=== PATIENT | male | born 1945 | race Caucasian/White ===

== ENCOUNTER 2017-09-06 14:02 | Inpatient (IN) | payer OTHER, MEDICARE ==
[~2017-09-06] VITALS: Ht 170.2 cm; Wt 115.0 kg
[~2017-09-06 14:02] MED LIST: ACET-812 PO; ALPR0.5T10 PO; ATOR20TA66 PO; BUPR150T8 PO; BUPR1FIL3 SL; DULO-31 PO; LACT1CAP65 PO; LEVO112T25 PO; LOSA100T28 PO; METO25TA6 PO; PANT-47 PO; TAMS0.4C32 PO; TRAZ-146 PO
[2017-09-06] MEDS ORDERED: nitroGLYCERIN 0.4mg/hour patch TD ONE (14:10)
[2017-09-06] MEDS ORDERED: aspirin 81mg tab.chew PO ONE (14:10)
[2017-09-06] MEDS ORDERED: potassium 10mEq/100ml NS w/LIDOcaine (10mg/bag) IV ONE (14:10)
[2017-09-06 14:29] LABS: BASOPHILS % (AUTO) 0.3 % (0-1); EOSINOPHILS # (AUTO) 0.7 X10'3 (0-0.9); EOSINOPHILS % (AUTO) 9.4 % (0-6); HEMATOCRIT 35.5 % (42.0-52.0); HEMOGLOBIN 12.1 g/dl (14.0-17.9); LYMPHOCYTES # (AUTO) 2.1 X10'3 (1.1-4.8); LYMPHOCYTES % (AUTO) 28.7 % (21-51); MEAN CORPUSCULAR HEMOGLOBIN 31.9 PG (27.0-31.0); MEAN CORPUSCULAR HGB CONC 34.2 % (33.0-36.5); MEAN CORPUSCULAR VOLUME 93.2 FL (78-98); MEAN PLATELET VOLUME 7.5 FL (7.4-10.4); MONOCYTES # (AUTO) 0.7 X10'3 (0-0.9); MONOCYTES % (AUTO) 9.9 % (2-12); NEUTROPHILS # (AUTO) 3.8 X10'3 (1.8-7.7); NEUTROPHILS % (AUTO) 51.7 % (42-75); PLATELET COUNT 243 X10'3 (140-440); RED BLOOD COUNT 3.81 X10'6 (4.70-6.10); RED CELL DISTRIBUTION WIDTH 13.9 % (11.5-14.5); WHITE BLOOD COUNT 7.3 X10'3 (4.5-11.0)
[2017-09-06 14:47] LABS: PROTHROMBIN TIME 9.5 SECONDS (9.0-12.0)
[2017-09-06 14:48] LABS: PARTIAL THROMBOPLASTIN TIME 26 SECONDS (22-32)
[2017-09-06 14:53] LABS: CLARITY,URINE SLIGHTLY CLOUDY (Clear); COLOR,URINE YELLOW (Yellow); GLUCOSE, URINE NEGATIVE (Neg); KETONES,URINE NEGATIVE (Neg); LEUKOCYTE ESTERASE ,URINE MODERATE (Neg); NITRITES, URINE NEGATIVE (Neg); OCCULT BLOOD,URINE NEGATIVE (Neg); PROTEIN,URINE NEGATIVE (Neg); UROBILINOGEN,URINE 0.2 E.U/dL (0.2-1.0)
[2017-09-06 14:54] LABS: ALANINE AMINOTRANSFERASE 22 U/L (12-78); ALBUMIN 3.2 G/DL (3.4-5.0); ALBUMIN/GLOBULIN RATIO 0.9 (1.1-1.5); ALKALINE PHOSPHATASE 57 IU/L (46-116); ANION GAP 6 (8-16); ASPARTATE AMINO TRANSFERASE 15 U/L (10-37); BILIRUBIN,TOTAL 0.2 MG/DL (0.1-1.0); BLOOD UREA NITROGEN 23 MG/DL (7-18); BUN/CREATININE RATIO 16.9 (5.4-32.0); CALCIUM 8.4 MG/DL (8.5-10.1); CHLORIDE 105 MMOL/L (99-107); CREATINE KINASE 33 U/L (39-308); CREATININE 1.36 MG/DL (0.60-1.10); GLUCOSE 114 MG/DL (70-104); POTASSIUM 4.7 MMOL/L (3.5-5.1); SODIUM 140 MMOL/L (135-145); TOTAL CARBON DIOXIDE 29.3 MMOL/L (24-32); TOTAL PROTEIN 6.8 G/DL (6.4-8.2); TROPONIN I < 0.04 NG/ML (0.0-0.05); eGFR 52 ML/MIN
[2017-09-06 15:03] LABS: UA COLLECTION TYPE URINAL
[2017-09-06 15:04] LABS: WBC,URINE 30-50 /HPF (0-4)
[2017-09-06 15:05] LABS: BACTERIA,URINE FEW /HPF (Neg); MUCUS STRANDS FEW /LPF (Neg); RBC,URINE 0-2 /HPF (0-2); SQUAMOUS EPITHELIAL CELL,UR FEW /LPF (FEW); WBC CLUMPS,URINE FEW /HPF (NEGATIVE); YEAST FEW /HPF (NEGATIVE)
[2017-09-06] MEDS ORDERED: ondansetron/PF 4mg/2ml inj IV PRN (16:30)
[2017-09-06] MEDS ORDERED: regadenoson 0.4mg/5ml syringe IV ONE (16:30)
[2017-09-06] MEDS ORDERED: acetaminophen 325mg tablet PO PRN (16:30)
[2017-09-06] MEDS ORDERED: HYDROmorphone inj. 0.5 MG/0.5 ML DISP.SYRIN IV PRN ×2 (16:30)
[2017-09-06] MEDS ORDERED: magnesium Cl slow-release 64mg tablet PO PRN (16:30)
[2017-09-06] MEDS ORDERED: potassium Cl 20 mEq SR tablet PO PRN ×2 (16:30)
[2017-09-06] MEDS ORDERED: mag hydrox/Alum hydrox/simeth 30ml oral suspension PO PRN (16:30)
[2017-09-06] MEDS ORDERED: magnesium 4gm in 100ml NS 100 ML IV PRN (16:30)
[2017-09-06] MEDS ORDERED: magnesium hydroxide 30ml (MOM) UD suspension PO PRN (16:30)
[2017-09-06] MEDS ORDERED: aminophylline 250mg/10ml inj. IV PRN (16:30)
[2017-09-06] MEDS ORDERED: magnesium 2GM in 50ml NS 50 ML IV PRN (16:30)
[2017-09-06] MEDS ORDERED: metoprolol tartrate 1mg/ml inj IV PRN (16:30)
[2017-09-06] MEDS ORDERED: potassium Cl 40MEQ/NS 500ml 500 ML IV PRN ×2 (16:30)
[2017-09-06] MEDS ORDERED: nitroGLYCERIN 0.4mg SUBLingual tab SL PRN (16:30)
[2017-09-06] MEDS: normal saline 1000ml 1,000 ML IV SCH (16:47)
[2017-09-06] MEDS ORDERED: ALPR0.257 PO (16:48)
[2017-09-06] MEDS ORDERED: BUPR1TAB52 SL (16:48)
[2017-09-06] MEDS ORDERED: regadenoson 0.4mg/5ml syringe IV PRN (17:40)
[2017-09-06] MEDS: pantoprazole 40mg Tablet.DR PO SCH (19:55)
[2017-09-06] MEDS: lactobacillus rhamnosus 10,000 MMU CELLS/CAPSULE PO SCH (19:55)
[2017-09-06] MEDS: acetaminophen 325mg tablet PO SCH (19:55)
[2017-09-06] MEDS: heparin, porcine 5000 units/ml vial SQ SCH (19:56)
[2017-09-06] MEDS ORDERED: traZODone 50mg tablet PO SCH (21:00)
[2017-09-06] MEDS ORDERED: temazepam 15mg capsule PO PRN (21:00)
[2017-09-06] MEDS: ALPRAZolam 0.25mg tablet PO PRN (21:32)
[2017-09-07] VITALS (9 sets, daily range): BP systolic 93–109; BP diastolic 48–64
[2017-09-07 02:27] LABS: BASOPHILS # (AUTO) 0.1 X10'3 (0-0.2); BASOPHILS % (AUTO) 0.7 % (0-1); EOSINOPHILS # (AUTO) 0.8 X10'3 (0-0.9); EOSINOPHILS % (AUTO) 7.6 % (0-6); HEMATOCRIT 32.6 % (42.0-52.0); HEMOGLOBIN 11.3 g/dl (14.0-17.9); LYMPHOCYTES # (AUTO) 3.2 X10'3 (1.1-4.8); LYMPHOCYTES % (AUTO) 31.6 % (21-51); MEAN CORPUSCULAR HEMOGLOBIN 32.1 PG (27.0-31.0); MEAN CORPUSCULAR HGB CONC 34.7 % (33.0-36.5); MEAN CORPUSCULAR VOLUME 92.5 FL (78-98); MEAN PLATELET VOLUME 7.9 FL (7.4-10.4); MONOCYTES % (AUTO) 9.8 % (2-12); NEUTROPHILS % (AUTO) 50.3 % (42-75); PLATELET COUNT 221 X10'3 (140-440); RED BLOOD COUNT 3.52 X10'6 (4.70-6.10); RED CELL DISTRIBUTION WIDTH 12.7 % (11.5-14.5); WHITE BLOOD COUNT 10.1 X10'3 (4.5-11.0)
[2017-09-07 02:48] LABS: ALANINE AMINOTRANSFERASE 21 U/L (12-78); ALBUMIN 2.9 G/DL (3.4-5.0); ALBUMIN/GLOBULIN RATIO 0.9 (1.1-1.5); ALKALINE PHOSPHATASE 47 IU/L (46-116); ANION GAP 5 (8-16); ASPARTATE AMINO TRANSFERASE 13 U/L (10-37); BILIRUBIN,TOTAL 0.2 MG/DL (0.1-1.0); BLOOD UREA NITROGEN 23 MG/DL (7-18); BUN/CREATININE RATIO 16.3 (5.4-32.0); CALCIUM 8.1 MG/DL (8.5-10.1); CHLORIDE 105 MMOL/L (99-107); CHOL/HDL RATIO 3.5 (0.00-4.99); CHOLESTEROL 146 MG/DL (0-200); CREATININE 1.41 MG/DL (0.60-1.10); GLUCOSE 100 MG/DL (70-104); HDL CHOLESTEROL 42 MG/DL (35-60); LDL CHOLESTEROL 71 MG/DL (50-100); MAGNESIUM 1.8 MG/DL (1.5-2.4); POTASSIUM 4.1 MMOL/L (3.5-5.1); SODIUM 138 MMOL/L (135-145); TOTAL CARBON DIOXIDE 28.4 MMOL/L (24-32); TOTAL PROTEIN 6.2 G/DL (6.4-8.2); TRIGLYCERIDES 240 MG/DL (20-135); eGFR 49 ML/MIN
[2017-09-07] MEDS ORDERED: metoprolol tartrate 25mg tablet PO SCH (08:00)
[2017-09-07] MEDS ORDERED: K and/or MAG REPLACEMENT MC SCH (08:00)
[2017-09-07] MEDS ORDERED: BUPRENORPHINE NALOXONE PO SCH (08:00)
[2017-09-07] MEDS ORDERED: duloxetine 30mg CAPSULE.DR PO SCH (08:00)
[2017-09-07] MEDS ORDERED: buprenorphine/naloxone 8mg/2mg SL tablet SL SCH (08:00)
[2017-09-07] MEDS ORDERED: atorvastatin 20mg tablet PO SCH (08:00)
[2017-09-07] MEDS ORDERED: levoTHYROXINE 112mcg tablet PO SCH (08:00)
[2017-09-07] MEDS ORDERED: tamsulosin 0.4mg capsule PO SCH (08:00)
[2017-09-07] MEDS ORDERED: buPROPion SR 150mg tablet PO SCH (08:00)
[2017-09-07] MEDS ORDERED: aminophylline inj. 0 ML IV ONE (08:33)
[2017-09-07] MEDS ORDERED: regadenoson 0.4mg/5ml syringe IV ONE (08:33)
[2017-09-07] MEDS ORDERED: pneumococcal 23-VAL P-sac vacc 25 mcg/0.5ml vial IMVAC ONE (10:00)
[2017-09-07] MEDS: ALPRAZolam 0.25mg tablet PO PRN (10:31)
[2017-09-07] MEDS: lactobacillus rhamnosus 10,000 MMU CELLS/CAPSULE PO SCH (10:43)
[2017-09-07] MEDS: heparin, porcine 5000 units/ml vial SQ SCH (10:44)
[2017-09-07] MEDS: acetaminophen 325mg tablet PO SCH (10:45)
[2017-09-07] MEDS: pantoprazole 40mg Tablet.DR PO SCH (10:46)
[2017-09-07] MEDS: normal saline 1000ml 1,000 ML IV SCH (11:09)
[2017-09-07] MEDS ORDERED: LOSA50TA37 PO (11:32)
== END 2017-09-07 12:20 | disposition home or self-care (01) | DRG 313 ==
LOC: ER 14:03 → ED HOLD 15:49 → PCU 3S 09-07 07:56
PROVIDERS: ADMIT Internal Medicine; ATTEND Internal Medicine
PROC: 4A02XM4 Measurement of Cardiac Total Activity, External Approach (ICD-10-PCS; principal; 2017-09-07)
PROC: 3E073KZ Introduction of Other Diagnostic Substance into Coronary Artery, Percutaneous Approach (ICD-10-PCS; 2017-09-07)
DX: R07.89 Other chest pain (principal); I25.10 Atherosclerotic heart disease of native coronary artery without angina pectoris; N18.3 Chronic kidney disease, stage 3 (moderate); E03.9 Hypothyroidism, unspecified; E78.00 Pure hypercholesterolemia, unspecified; E78.5 Hyperlipidemia, unspecified; E66.9 Obesity, unspecified; F32.9 Major depressive disorder, single episode, unspecified; G47.30 Sleep apnea, unspecified; I12.9 Hypertensive chronic kidney disease with stage 1 through stage 4 chronic kidney disease, or unspecified chronic kidney disease; G89.29 Other chronic pain; M54.5 Low back pain; N40.0 Benign prostatic hyperplasia without lower urinary tract symptoms; Z95.1 Presence of aortocoronary bypass graft; Z88.6 Allergy status to analgesic agent; Z79.899 Other long term (current) drug therapy; Z98.49 Cataract extraction status, unspecified eye; Z87.442 Personal history of urinary calculi; Z68.39 Body mass index [BMI] 39.0-39.9, adult
CPT/HCPCS: 36415; 71045; 78452; 80053; 80061; 80162; 81001; 82550; 82553; 83735; 83874; 83880; 84443; 84484; 85025; 85610; 85730; 87070; 87077; 87088; 93005; 93017; 93306; 94660; A9500; J0280; J1644; J3480; J7030

== ENCOUNTER 2017-09-11 01:31 | Emergency (ER) | payer OTHER, MEDICARE ==
[~2017-09-11] VITALS: Ht 170.2 cm; Wt 120.0 kg
[~2017-09-11 01:31] MED LIST changes: +ALPR0.257 PO; -ALPR0.5T10 PO; -BUPR1FIL3 SL; +BUPR1TAB52 SL; -LOSA100T28 PO; +LOSA50TA37 PO
[2017-09-11] MEDS ORDERED: ketorolac tromethamine 15mg/ml inj. IV ONE (02:00)
[2017-09-11 02:24] LABS: ALANINE AMINOTRANSFERASE 27 U/L (12-78); ALBUMIN 3.6 G/DL (3.4-5.0); ALBUMIN/GLOBULIN RATIO 0.8 (1.1-1.5); ALKALINE PHOSPHATASE 64 IU/L (46-116); ANION GAP 11 (8-16); ASPARTATE AMINO TRANSFERASE 20 U/L (10-37); BASOPHILS % (AUTO) 0.3 % (0-1); BILIRUBIN,TOTAL 0.3 MG/DL (0.1-1.0); BLOOD UREA NITROGEN 25 MG/DL (7-18); BUN/CREATININE RATIO 13.1 (5.4-32.0); CALCIUM 9.5 MG/DL (8.5-10.1); CHLORIDE 103 MMOL/L (99-107); CREATININE 1.91 MG/DL (0.60-1.10); EOSINOPHILS # (AUTO) 0.7 X10'3 (0-0.9); EOSINOPHILS % (AUTO) 4.3 % (0-6); GLUCOSE 117 MG/DL (70-104); HEMATOCRIT 40.2 % (42.0-52.0); HEMOGLOBIN 13.6 g/dl (14.0-17.9); LIPASE 70 U/L (73-393); LYMPHOCYTES # (AUTO) 2.5 X10'3 (1.1-4.8); LYMPHOCYTES % (AUTO) 16.4 % (21-51); MAGNESIUM 1.9 MG/DL (1.5-2.4); MEAN CORPUSCULAR HEMOGLOBIN 31.1 PG (27.0-31.0); MEAN CORPUSCULAR HGB CONC 33.8 % (33.0-36.5); MEAN CORPUSCULAR VOLUME 92.1 FL (78-98); MEAN PLATELET VOLUME 8.9 FL (7.4-10.4); MONOCYTES # (AUTO) 1.3 X10'3 (0-0.9); MONOCYTES % (AUTO) 8.5 % (2-12); NEUTROPHILS # (AUTO) 10.8 X10'3 (1.8-7.7); NEUTROPHILS % (AUTO) 70.5 % (42-75); PLATELET COUNT 275 X10'3 (140-440); POTASSIUM 3.8 MMOL/L (3.5-5.1); RED BLOOD COUNT 4.36 X10'6 (4.70-6.10); RED CELL DISTRIBUTION WIDTH 12.5 % (11.5-14.5); SODIUM 142 MMOL/L (135-145); TOTAL CARBON DIOXIDE 28.3 MMOL/L (24-32); TOTAL PROTEIN 7.9 G/DL (6.4-8.2); WHITE BLOOD COUNT 15.3 X10'3 (4.5-11.0); eGFR 35 ML/MIN
[2017-09-11 03:17] VITALS: BP 137/71
[2017-09-11 03:20] LABS: COLOR,URINE YELLOW (Yellow); GLUCOSE, URINE NEGATIVE (Neg); KETONES,URINE NEGATIVE (Neg); LEUKOCYTE ESTERASE ,URINE SMALL (Neg); NITRITES, URINE NEGATIVE (Neg); OCCULT BLOOD,URINE LARGE (Neg); PROTEIN,URINE NEGATIVE (Neg); UROBILINOGEN,URINE 0.2 E.U/dL (0.2-1.0)
[2017-09-11] MEDS ORDERED: ondansetron/PF 4mg/2ml inj IV ONE (03:25)
[2017-09-11 03:48] LABS: CLARITY,URINE SLIGHTLY CLOUDY (Clear); UA COLLECTION TYPE CLN CATCH MIDSTREAM
[2017-09-11 03:50] LABS: BACTERIA,URINE NONE SEEN /HPF (Neg); MUCUS STRANDS FEW /LPF (Neg); SQUAMOUS EPITHELIAL CELL,UR FEW /LPF (FEW); WBC CLUMPS,URINE FEW /HPF (NEGATIVE); WBC,URINE 30-50 /HPF (0-4)
[2017-09-11 03:51] LABS: YEAST FEW /HPF (NEGATIVE)
[2017-09-11] MEDS ORDERED: levoFLOXACIN 500mg tablet PO ONE (04:00)
[2017-09-11] MEDS ORDERED: LEVO500T2 PO (04:02)
== END 2017-09-11 04:13 | disposition home or self-care (01) ==
LOC: ER 01:32
DX: N39.0 Urinary tract infection, site not specified (principal); N20.0 Calculus of kidney; I25.10 Atherosclerotic heart disease of native coronary artery without angina pectoris; E78.00 Pure hypercholesterolemia, unspecified; I10 Essential (primary) hypertension; E03.9 Hypothyroidism, unspecified; G89.29 Other chronic pain; Z95.1 Presence of aortocoronary bypass graft; Z88.5 Allergy status to narcotic agent; Z79.899 Other long term (current) drug therapy
CPT/HCPCS: 36415; 74176; 80053; 81001; 83690; 83735; 85025; 87088; 96374; 96375; 99285; J1885; J2405

== ENCOUNTER 2018-01-06 13:39 | Emergency (ER) | payer MEDICARE, OTHER ==
[~2018-01-06] VITALS: Ht 172.7 cm; Wt 104.8 kg
[2018-01-06 14:14] LABS: BASOPHILS % (AUTO) 0.4 % (0-1); EOSINOPHILS # (AUTO) 0.2 X10'3 (0-0.9); EOSINOPHILS % (AUTO) 2.2 % (0-6); HEMATOCRIT 42.4 % (42.0-52.0); HEMOGLOBIN 14.5 g/dl (14.0-17.9); LYMPHOCYTES % (AUTO) 20.8 % (21-51); MEAN CORPUSCULAR HEMOGLOBIN 32.1 PG (27.0-31.0); MEAN CORPUSCULAR HGB CONC 34.2 % (33.0-36.5); MEAN CORPUSCULAR VOLUME 93.9 FL (78-98); MEAN PLATELET VOLUME 7.6 FL (7.4-10.4); MONOCYTES # (AUTO) 0.8 X10'3 (0-0.9); MONOCYTES % (AUTO) 7.9 % (2-12); NEUTROPHILS # (AUTO) 6.7 X10'3 (1.8-7.7); NEUTROPHILS % (AUTO) 68.7 % (42-75); PLATELET COUNT 278 X10'3 (140-440); RED BLOOD COUNT 4.51 X10'6 (4.70-6.10); RED CELL DISTRIBUTION WIDTH 13.8 % (11.5-14.5); WHITE BLOOD COUNT 9.7 X10'3 (4.5-11.0)
[2018-01-06] MEDS ORDERED: ondansetron/PF 4mg/2ml inj IV ONE (14:15)
[2018-01-06] MEDS ORDERED: normal saline 1000ML IV soln IVB ONE (14:15)
[2018-01-06 14:22] LABS: PROTHROMBIN TIME 10.2 SECONDS (9.0-12.0)
[2018-01-06 14:28] LABS: ALANINE AMINOTRANSFERASE 19 U/L (12-78); ALBUMIN 3.8 G/DL (3.4-5.0); ALBUMIN/GLOBULIN RATIO 0.9 (1.1-1.5); ALKALINE PHOSPHATASE 56 IU/L (46-116); ANION GAP 11 (8-16); ASPARTATE AMINO TRANSFERASE 17 U/L (10-37); BILIRUBIN,TOTAL 0.5 MG/DL (0.1-1.0); BLOOD UREA NITROGEN 12 MG/DL (7-18); BUN/CREATININE RATIO 9.2 (5.4-32.0); CHLORIDE 102 MMOL/L (99-107); CREATININE 1.31 MG/DL (0.60-1.10); GLUCOSE 130 MG/DL (70-104); LIPASE 74 U/L (73-393); POTASSIUM 4.1 MMOL/L (3.5-5.1); SODIUM 140 MMOL/L (135-145); TOTAL CARBON DIOXIDE 26.9 MMOL/L (24-32); TOTAL PROTEIN 8.2 G/DL (6.4-8.2); eGFR 54 ML/MIN
[2018-01-06] MEDS ORDERED: lactulose 20gm/30ml cup PO ONE (14:45)
[2018-01-06] MEDS ORDERED: methylnaltrexone br 12mg/0.6ml inj***SubQ only SQ ONE (14:45)
[2018-01-06] MEDS ORDERED: ONDA4TAB9 PO (14:53)
[2018-01-06 15:08] VITALS: BP 115/77
== END 2018-01-06 15:13 | disposition home or self-care (01) ==
LOC: ER 13:39
DX: K59.03 Drug induced constipation (principal); T40.605A Adverse effect of unspecified narcotics, initial encounter; M54.2 Cervicalgia; M54.9 Dorsalgia, unspecified; I25.10 Atherosclerotic heart disease of native coronary artery without angina pectoris; E78.00 Pure hypercholesterolemia, unspecified; I10 Essential (primary) hypertension; I25.2 Old myocardial infarction; E03.9 Hypothyroidism, unspecified; Z95.1 Presence of aortocoronary bypass graft; Z98.890 Other specified postprocedural states; Z88.5 Allergy status to narcotic agent; Z79.899 Other long term (current) drug therapy; Y92.89 Other specified places as the place of occurrence of the external cause
CPT/HCPCS: 36415; 74018; 80053; 83690; 85025; 85610; 96372; 99285; J2212

== ENCOUNTER 2018-08-12 10:23 | Emergency (ER) | payer MEDICARE, OTHER ==
[~2018-08-12] VITALS: Ht 172.7 cm; Wt 111.4 kg
[~2018-08-12 10:23] MED LIST changes: -LOSA50TA37 PO; +LOSA50TA64 PO; -TRAZ-146 PO; +TRAZ-219 PO
[2018-08-12 11:02] LABS: BASOPHILS % (AUTO) 0.5 % (0-1); EOSINOPHILS # (AUTO) 0.4 X10'3 (0-0.9); EOSINOPHILS % (AUTO) 5.8 % (0-6); HEMATOCRIT 37.7 % (42.0-52.0); HEMOGLOBIN 12.7 g/dl (14.0-17.9); LYMPHOCYTES # (AUTO) 2.1 X10'3 (1.1-4.8); LYMPHOCYTES % (AUTO) 29.3 % (21-51); MEAN CORPUSCULAR HEMOGLOBIN 32.3 PG (27.0-31.0); MEAN CORPUSCULAR HGB CONC 33.8 g/dL (33.0-36.5); MEAN CORPUSCULAR VOLUME 95.7 FL (78-98); MEAN PLATELET VOLUME 8.1 FL (7.4-10.4); MONOCYTES # (AUTO) 0.9 X10'3 (0-0.9); NEUTROPHILS # (AUTO) 3.9 X10'3 (1.8-7.7); NEUTROPHILS % (AUTO) 52.4 % (42-75); PLATELET COUNT 260 X10'3 (140-440); RED BLOOD COUNT 3.94 X10'6 (4.70-6.10); RED CELL DISTRIBUTION WIDTH 13.9 % (11.5-14.5); WHITE BLOOD COUNT 7.3 X10'3 (4.5-11.0)
[2018-08-12 11:11] LABS: ALANINE AMINOTRANSFERASE 18 U/L (12-78); ALBUMIN 3.5 G/DL (3.4-5.0); ALBUMIN/GLOBULIN RATIO 0.9 (1.1-1.5); ALKALINE PHOSPHATASE 88 IU/L (46-116); ANION GAP 8 (8-16); ASPARTATE AMINO TRANSFERASE 19 U/L (10-37); BILIRUBIN,TOTAL 0.2 MG/DL (0.1-1.0); BLOOD UREA NITROGEN 28 MG/DL (7-18); BUN/CREATININE RATIO 20.4 (5.4-32.0); CALCIUM 9.1 MG/DL (8.5-10.1); CHLORIDE 103 MMOL/L (99-107); CREATININE 1.37 MG/DL (0.60-1.10); GLUCOSE 80 MG/DL (70-104); POTASSIUM 4.1 MMOL/L (3.5-5.1); SODIUM 140 MMOL/L (135-145); TOTAL CARBON DIOXIDE 28.6 MMOL/L (24-32); TOTAL PROTEIN 7.4 G/DL (6.4-8.2); eGFR 51 ML/MIN
[2018-08-12] MEDS ORDERED: METO-395 PO (12:53)
[2018-08-12] MEDS ORDERED: FISH12002 PO (12:53)
[2018-08-12] MEDS ORDERED: ISOS30TA6 PO (12:53)
[2018-08-12] MEDS ORDERED: MULT-933 PO (12:53)
[2018-08-12] MEDS ORDERED: IBUP-1986 PO (12:53)
[2018-08-12] MEDS ORDERED: CHOL400T14 PO (12:53)
[2018-08-12] MEDS ORDERED: NITR0.4T SL (12:53)
[2018-08-12 13:04] VITALS: BP 115/44
== END 2018-08-12 13:06 | disposition home or self-care (01) ==
LOC: ER 10:23
DX: R07.9 Chest pain, unspecified (principal); M79.662 Pain in left lower leg; M79.661 Pain in right lower leg; I25.10 Atherosclerotic heart disease of native coronary artery without angina pectoris; E78.00 Pure hypercholesterolemia, unspecified; I10 Essential (primary) hypertension; I25.2 Old myocardial infarction; G47.30 Sleep apnea, unspecified; G89.29 Other chronic pain; E03.9 Hypothyroidism, unspecified; F32.9 Major depressive disorder, single episode, unspecified; Z95.1 Presence of aortocoronary bypass graft; Z88.5 Allergy status to narcotic agent; Z87.442 Personal history of urinary calculi; Z79.899 Other long term (current) drug therapy
CPT/HCPCS: 36415; 71045; 80053; 83880; 84484; 85025; 93005; 99284

== ENCOUNTER 2018-12-31 11:32 | Emergency (ER) | payer MEDICARE, OTHER ==
[~2018-12-31] VITALS: Ht 172.7 cm; Wt 115.6 kg
[~2018-12-31 11:32] MED LIST changes: +CHOL400T14 PO; +FISH12002 PO; +IBUP-1986 PO; +ISOS30TA6 PO; -LOSA50TA64 PO; +METO-395 PO; -METO25TA6 PO; +MULT-933 PO; +NITR0.4T SL; +SULF1TAB49 PO
[2018-12-31 12:03] LABS: BASOPHILS # (AUTO) 0.1 X10'3 (0-0.2); BASOPHILS % (AUTO) 0.7 % (0-1); EOSINOPHILS # (AUTO) 0.3 X10'3 (0-0.9); EOSINOPHILS % (AUTO) 4.5 % (0-6); HEMOGLOBIN 13.3 g/dl (14.0-17.9); LYMPHOCYTES # (AUTO) 1.9 X10'3 (1.1-4.8); LYMPHOCYTES % (AUTO) 24.9 % (21-51); MEAN CORPUSCULAR HEMOGLOBIN 31.9 PG (27.0-31.0); MEAN PLATELET VOLUME 8.2 FL (7.4-10.4); MONOCYTES # (AUTO) 0.9 X10'3 (0-0.9); MONOCYTES % (AUTO) 12.1 % (2-12); NEUTROPHILS # (AUTO) 4.5 X10'3 (1.8-7.7); NEUTROPHILS % (AUTO) 57.8 % (42-75); PLATELET COUNT 230 X10'3 (140-440); RED BLOOD COUNT 4.15 X10'6 (4.70-6.10); RED CELL DISTRIBUTION WIDTH 13.9 % (11.5-14.5); WHITE BLOOD COUNT 7.7 X10'3 (4.5-11.0)
[2018-12-31 12:16] LABS: ANION GAP 9 (8-16); BLOOD UREA NITROGEN 22 MG/DL (7-18); BUN/CREATININE RATIO 15.4 (5.4-32.0); CHLORIDE 102 MMOL/L (99-107); CREATININE 1.43 MG/DL (0.60-1.10); GLUCOSE 103 MG/DL (70-104); POTASSIUM 4.2 MMOL/L (3.5-5.1); SODIUM 139 MMOL/L (135-145)
[2018-12-31 12:17] LABS: ALANINE AMINOTRANSFERASE 24 U/L (12-78); ALBUMIN 3.5 G/DL (3.4-5.0); ALBUMIN/GLOBULIN RATIO 0.9 (1.1-1.5); ALKALINE PHOSPHATASE 66 IU/L (46-116); ASPARTATE AMINO TRANSFERASE 18 U/L (10-37); BILIRUBIN,TOTAL 0.3 MG/DL (0.1-1.0); CALCIUM 8.7 MG/DL (8.5-10.1); PARTIAL THROMBOPLASTIN TIME 36 SECONDS (22-32); TOTAL PROTEIN 7.6 G/DL (6.4-8.2); eGFR 48 ML/MIN
--- NOTE | 2018-12-31 12:27 | NUR ---
dr. cuellar at bedside.
--- NOTE | 2018-12-31 12:48 | NUR ---
Pt ambulated around unit on RA. SPO2 decreased from 96% to 92%. Pt was mildly SOB.
[2018-12-31] MEDS ORDERED: iohexol 350MG/ML 100ml bottle IV ONE (14:26)
--- NOTE | 2018-12-31 15:04 | NUR ---
AWAITING CERTIFIED RETINAL ANGIOGRAPHER TO TAKE PATIENT TO CT.
[2018-12-31 15:55] VITALS: BP 117/72
== END 2018-12-31 16:01 | disposition home or self-care (01) ==
LOC: ER 11:33
DX: R06.02 Shortness of breath (principal); I25.10 Atherosclerotic heart disease of native coronary artery without angina pectoris; E78.00 Pure hypercholesterolemia, unspecified; I10 Essential (primary) hypertension; I25.2 Old myocardial infarction; G47.30 Sleep apnea, unspecified; N40.0 Benign prostatic hyperplasia without lower urinary tract symptoms; E03.9 Hypothyroidism, unspecified; G89.29 Other chronic pain; F32.9 Major depressive disorder, single episode, unspecified; Z98.890 Other specified postprocedural states; Z87.442 Personal history of urinary calculi; Z88.5 Allergy status to narcotic agent; Z91.013 Allergy to seafood; Z79.899 Other long term (current) drug therapy; Z95.1 Presence of aortocoronary bypass graft
CPT/HCPCS: 36415; 71045; 71275; 80053; 83880; 84484; 85025; 85610; 85730; 93005; 99284; Q9967

== ENCOUNTER 2019-01-16 16:14 | Emergency (ER) | payer MEDICARE ==
[~2019-01-16] VITALS: Ht 172.7 cm; Wt 115.5 kg
[~2019-01-16 16:14] MED LIST changes: -SULF1TAB49 PO
[2019-01-16 17:24] LABS: BASOPHILS # (AUTO) 0.1 X10'3 (0-0.2); BASOPHILS % (AUTO) 0.8 % (0-1); EOSINOPHILS # (AUTO) 0.3 X10'3 (0-0.9); EOSINOPHILS % (AUTO) 3.4 % (0-6); HEMATOCRIT 39.8 % (42.0-52.0); HEMOGLOBIN 13.4 g/dl (14.0-17.9); LYMPHOCYTES # (AUTO) 2.3 X10'3 (1.1-4.8); LYMPHOCYTES % (AUTO) 24.9 % (21-51); MEAN CORPUSCULAR HEMOGLOBIN 31.9 PG (27.0-31.0); MEAN CORPUSCULAR HGB CONC 33.6 g/dL (33.0-36.5); MEAN CORPUSCULAR VOLUME 94.8 FL (78-98); MEAN PLATELET VOLUME 8.3 FL (7.4-10.4); MONOCYTES # (AUTO) 0.9 X10'3 (0-0.9); MONOCYTES % (AUTO) 10.4 % (2-12); NEUTROPHILS # (AUTO) 5.5 X10'3 (1.8-7.7); NEUTROPHILS % (AUTO) 60.5 % (42-75); PLATELET COUNT 265 X10'3 (140-440); RED CELL DISTRIBUTION WIDTH 13.7 % (11.5-14.5); WHITE BLOOD COUNT 9.1 X10'3 (4.5-11.0)
[2019-01-16 17:43] LABS: PARTIAL THROMBOPLASTIN TIME 35 SECONDS (22-32)
[2019-01-16 17:46] LABS: ALANINE AMINOTRANSFERASE 25 U/L (12-78); ALBUMIN 3.4 G/DL (3.4-5.0); ALBUMIN/GLOBULIN RATIO 0.9 (1.1-1.5); ALKALINE PHOSPHATASE 62 IU/L (46-116); ANION GAP 9 (8-16); ASPARTATE AMINO TRANSFERASE 17 U/L (10-37); BILIRUBIN,TOTAL 0.3 MG/DL (0.1-1.0); BLOOD UREA NITROGEN 21 MG/DL (7-18); CALCIUM 9.3 MG/DL (8.5-10.1); CHLORIDE 106 MMOL/L (99-107); GLUCOSE 110 MG/DL (70-104); POTASSIUM 4.1 MMOL/L (3.5-5.1); SODIUM 142 MMOL/L (135-145); TOTAL PROTEIN 7.4 G/DL (6.4-8.2); eGFR 50 ML/MIN
[2019-01-16 19:35] VITALS: BP 103/82
== END 2019-01-16 19:37 | disposition home or self-care (01) ==
LOC: ER 16:14
DX: R06.02 Shortness of breath (principal); R22.43 Localized swelling, mass and lump, lower limb, bilateral; I25.10 Atherosclerotic heart disease of native coronary artery without angina pectoris; E78.00 Pure hypercholesterolemia, unspecified; I10 Essential (primary) hypertension; I25.2 Old myocardial infarction; G47.30 Sleep apnea, unspecified; E03.9 Hypothyroidism, unspecified; G89.29 Other chronic pain; F32.9 Major depressive disorder, single episode, unspecified; F10.99 Alcohol use, unspecified with unspecified alcohol-induced disorder; Z87.442 Personal history of urinary calculi; Z95.1 Presence of aortocoronary bypass graft; Z98.890 Other specified postprocedural states; Z88.5 Allergy status to narcotic agent; Z87.891 Personal history of nicotine dependence; Z79.899 Other long term (current) drug therapy; Y90.9 Presence of alcohol in blood, level not specified
CPT/HCPCS: 36415; 71045; 80053; 84484; 85025; 85610; 85730; 93005; 99284

== ENCOUNTER 2019-06-02 15:39 | Emergency (ER) | payer MEDICARE ==
[~2019-06-02] VITALS: Ht 172.7 cm; Wt 115.0 kg
[2019-06-02 16:14] LABS: BASOPHILS % (AUTO) 0.4 % (0-1); EOSINOPHILS # (AUTO) 0.4 X10'3 (0-0.9); EOSINOPHILS % (AUTO) 4.1 % (0-6); HEMATOCRIT 38.7 % (42.0-52.0); HEMOGLOBIN 13.3 g/dl (14.0-17.9); LYMPHOCYTES # (AUTO) 2.1 X10'3 (1.1-4.8); LYMPHOCYTES % (AUTO) 22.9 % (21-51); MEAN CORPUSCULAR HEMOGLOBIN 32.8 PG (27.0-31.0); MEAN CORPUSCULAR HGB CONC 34.3 g/dL (33.0-36.5); MEAN CORPUSCULAR VOLUME 95.5 FL (78-98); MEAN PLATELET VOLUME 8.4 FL (7.4-10.4); MONOCYTES # (AUTO) 0.8 X10'3 (0-0.9); MONOCYTES % (AUTO) 8.6 % (2-12); NEUTROPHILS # (AUTO) 5.8 X10'3 (1.8-7.7); PLATELET COUNT 239 X10'3 (140-440); RED BLOOD COUNT 4.05 X10'6 (4.70-6.10); RED CELL DISTRIBUTION WIDTH 14.3 % (11.5-14.5)
[2019-06-02 16:21] LABS: PARTIAL THROMBOPLASTIN TIME 33 SECONDS (22-32)
[2019-06-02 16:23] LABS: ALANINE AMINOTRANSFERASE 26 U/L (12-78); ALBUMIN 3.6 G/DL (3.4-5.0); ALBUMIN/GLOBULIN RATIO 0.9 (1.1-1.5); ALKALINE PHOSPHATASE 61 IU/L (46-116); ANION GAP 9 (8-16); ASPARTATE AMINO TRANSFERASE 21 U/L (10-37); BILIRUBIN,TOTAL 0.3 MG/DL (0.1-1.0); BLOOD UREA NITROGEN 28 MG/DL (7-18); BUN/CREATININE RATIO 21.1 (5.4-32.0); CALCIUM 9.3 MG/DL (8.5-10.1); CHLORIDE 104 MMOL/L (99-107); CREATININE 1.33 MG/DL (0.60-1.10); GLUCOSE 89 MG/DL (70-104); POTASSIUM 4.2 MMOL/L (3.5-5.1); SODIUM 142 MMOL/L (135-145); TOTAL CARBON DIOXIDE 29.2 MMOL/L (24-32); TOTAL PROTEIN 7.8 G/DL (6.4-8.2); eGFR 53 ML/MIN
[2019-06-02] MEDS ORDERED: CEPH500C5 PO (18:03)
[2019-06-02 18:09] VITALS: BP 134/62
== END 2019-06-02 18:00 | disposition home or self-care (01) ==
LOC: ER 15:40
DX: J44.9 Chronic obstructive pulmonary disease, unspecified (principal); I25.10 Atherosclerotic heart disease of native coronary artery without angina pectoris; E78.00 Pure hypercholesterolemia, unspecified; I10 Essential (primary) hypertension; I25.2 Old myocardial infarction; G47.30 Sleep apnea, unspecified; E03.9 Hypothyroidism, unspecified; G89.29 Other chronic pain; F32.9 Major depressive disorder, single episode, unspecified; Z95.1 Presence of aortocoronary bypass graft; Z98.890 Other specified postprocedural states; Z88.5 Allergy status to narcotic agent; Z79.899 Other long term (current) drug therapy
CPT/HCPCS: 36415; 71045; 80053; 83880; 84484; 85025; 85610; 85730; 93005; 99284

== ENCOUNTER 2019-08-21 09:15 | Outpatient (CLI) | payer OTHER ==
[~2019-08-21 09:15] MED LIST changes: +CEPH500C5 PO; -TRAZ-219 PO; +TRAZ-256 PO
[2019-08-21] MEDS ORDERED: nystatin/triamcinolone cream 15gm TP ONE (11:19)
== END 2019-08-21 11:30 | disposition home or self-care (01) ==
LOC: WOUND CARE 09:15 → EDSTATUS 09:30 → WOUND CARE 11:30
PROVIDERS: ATTEND Surgery
DX: I83.012 Varicose veins of right lower extremity with ulcer of calf (principal); L97.211 Non-pressure chronic ulcer of right calf limited to breakdown of skin; L97.811 Non-pressure chronic ulcer of other part of right lower leg limited to breakdown of skin; I83.022 Varicose veins of left lower extremity with ulcer of calf; L97.221 Non-pressure chronic ulcer of left calf limited to breakdown of skin; L97.821 Non-pressure chronic ulcer of other part of left lower leg limited to breakdown of skin; J44.9 Chronic obstructive pulmonary disease, unspecified; I10 Essential (primary) hypertension; E03.9 Hypothyroidism, unspecified; I25.2 Old myocardial infarction; G89.29 Other chronic pain; E78.00 Pure hypercholesterolemia, unspecified; G47.30 Sleep apnea, unspecified; M19.90 Unspecified osteoarthritis, unspecified site; B35.1 Tinea unguium; F32.9 Major depressive disorder, single episode, unspecified; Z85.828 Personal history of other malignant neoplasm of skin; Z86.14 Personal history of Methicillin resistant Staphylococcus aureus infection; Z79.899 Other long term (current) drug therapy; Z98.890 Other specified postprocedural states; Z95.1 Presence of aortocoronary bypass graft; Z87.891 Personal history of nicotine dependence
CPT/HCPCS: 93970; G0463; J7999

== ENCOUNTER 2020-03-12 10:53 | Emergency (ER) | payer MEDICARE ==
[~2020-03-12] VITALS: Ht 170.2 cm; Wt 113.6 kg
[~2020-03-12 10:53] MED LIST changes: +BUPR1TAB44 SL; -BUPR1TAB52 SL
[2020-03-12 11:38] LABS: BASOPHILS # (AUTO) 0.1 X10'3 (0-0.2); BASOPHILS % (AUTO) 0.7 % (0-1); EOSINOPHILS # (AUTO) 0.3 X10'3 (0-0.9); EOSINOPHILS % (AUTO) 3.8 % (0-6); HEMATOCRIT 36.8 % (42.0-52.0); HEMOGLOBIN 12.4 g/dl (14.0-17.9); LYMPHOCYTES # (AUTO) 1.9 X10'3 (1.1-4.8); LYMPHOCYTES % (AUTO) 24.1 % (21-51); MEAN CORPUSCULAR HEMOGLOBIN 31.5 PG (27.0-31.0); MEAN CORPUSCULAR HGB CONC 33.6 g/dL (33.0-36.5); MEAN CORPUSCULAR VOLUME 93.8 FL (78-98); MEAN PLATELET VOLUME 8.4 FL (7.4-10.4); MONOCYTES # (AUTO) 0.9 X10'3 (0-0.9); MONOCYTES % (AUTO) 11.5 % (2-12); NEUTROPHILS # (AUTO) 4.8 X10'3 (1.8-7.7); NEUTROPHILS % (AUTO) 59.9 % (42-75); PLATELET COUNT 239 X10'3 (140-440); RED BLOOD COUNT 3.92 X10'6 (4.70-6.10); RED CELL DISTRIBUTION WIDTH 14.4 % (11.5-14.5)
[2020-03-12 11:50] LABS: ALANINE AMINOTRANSFERASE 24 U/L (12-78); ALBUMIN 3.4 G/DL (3.4-5.0); ALBUMIN/GLOBULIN RATIO 0.9 (1.1-1.5); ALKALINE PHOSPHATASE 57 IU/L (46-116); ANION GAP 4 (8-16); ASPARTATE AMINO TRANSFERASE 20 U/L (10-37); BILIRUBIN,TOTAL 0.3 MG/DL (0.1-1.0); BLOOD UREA NITROGEN 25 MG/DL (7-18); BUN/CREATININE RATIO 19.4 (5.4-32.0); CALCIUM 9.2 MG/DL (8.5-10.1); CHLORIDE 104 MMOL/L (99-107); CREATININE 1.29 MG/DL (0.60-1.10); GLUCOSE 96 MG/DL (70-104); POTASSIUM 4.4 MMOL/L (3.5-5.1); SODIUM 139 MMOL/L (135-145); TOTAL CARBON DIOXIDE 31.5 MMOL/L (24-32); TOTAL PROTEIN 7.3 G/DL (6.4-8.2); eGFR 54 ML/MIN
[2020-03-12] MEDS ORDERED: ISOS30TA10 PO (15:42)
[2020-03-12 16:00] VITALS: BP 113/65
== END 2020-03-12 15:55 | disposition home or self-care (01) ==
LOC: ER 10:55
DX: I20.9 Angina pectoris, unspecified (principal); I51.89 Other ill-defined heart diseases; I25.10 Atherosclerotic heart disease of native coronary artery without angina pectoris; E78.00 Pure hypercholesterolemia, unspecified; I10 Essential (primary) hypertension; I25.2 Old myocardial infarction; G47.30 Sleep apnea, unspecified; E03.9 Hypothyroidism, unspecified; G89.29 Other chronic pain; F32.9 Major depressive disorder, single episode, unspecified; Z95.1 Presence of aortocoronary bypass graft; Z98.890 Other specified postprocedural states; Z72.89 Other problems related to lifestyle; Z88.5 Allergy status to narcotic agent; Z79.899 Other long term (current) drug therapy
CPT/HCPCS: 36415; 71045; 80053; 83880; 84484; 85025; 93005; 99285

== ENCOUNTER 2020-07-23 09:57 | Emergency (ER) | payer OTHER, MEDICARE ==
[~2020-07-23] VITALS: Ht 172.7 cm; Wt 111.4 kg
[~2020-07-23 09:57] MED LIST changes: -CEPH500C5 PO; +ISOS30TA10 PO
[2020-07-23 10:01] VITALS: BP 131/69
[2020-07-23] MEDS ORDERED: acetaminophen 325mg tablet PO ONE ×2 (10:25→10:30)
[2020-07-23] MEDS ORDERED: METH-360 PO (10:27)
[2020-07-23] MEDS ORDERED: WALKERFR (10:31)
== END 2020-07-23 10:50 | disposition home or self-care (01) ==
LOC: ER 09:58
DX: G89.29 Other chronic pain (principal); M54.5 Low back pain; I25.10 Atherosclerotic heart disease of native coronary artery without angina pectoris; E78.00 Pure hypercholesterolemia, unspecified; I10 Essential (primary) hypertension; I25.2 Old myocardial infarction; E03.9 Hypothyroidism, unspecified; F32.9 Major depressive disorder, single episode, unspecified; Z87.442 Personal history of urinary calculi; Z98.890 Other specified postprocedural states; Z72.89 Other problems related to lifestyle; Z88.5 Allergy status to narcotic agent; Z88.8 Allergy status to other drugs, medicaments and biological substances; Z79.899 Other long term (current) drug therapy
CPT/HCPCS: 99283

== ENCOUNTER 2020-08-18 11:29 | Observation (INO) | payer OTHER, MEDICARE ==
[~2020-08-18] VITALS: Ht 172.7 cm; Wt 111.4 kg
[~2020-08-18 11:29] MED LIST changes: -ISOS30TA6 PO; +ISOS30TA84 PO; +METH-360 PO; +WALKERFR
[2020-08-18 13:00] LABS: BASOPHILS % (AUTO) 0.2 % (0-1); EOSINOPHILS # (AUTO) 0.1 X10'3 (0-0.9); EOSINOPHILS % (AUTO) 0.5 % (0-6); HEMATOCRIT 39.5 % (42.0-52.0); HEMOGLOBIN 13.3 g/dl (14.0-17.9); LYMPHOCYTES # (AUTO) 2.1 X10'3 (1.1-4.8); LYMPHOCYTES % (AUTO) 17.7 % (21-51); MEAN CORPUSCULAR HEMOGLOBIN 31.6 PG (27.0-31.0); MEAN CORPUSCULAR HGB CONC 33.7 g/dL (33.0-36.5); MEAN CORPUSCULAR VOLUME 93.9 FL (78-98); MEAN PLATELET VOLUME 8.4 FL (7.4-10.4); MONOCYTES # (AUTO) 1.7 X10'3 (0-0.9); MONOCYTES % (AUTO) 14.3 % (2-12); NEUTROPHILS % (AUTO) 67.3 % (42-75); PLATELET COUNT 284 X10'3 (140-440); RED BLOOD COUNT 4.21 X10'6 (4.70-6.10); RED CELL DISTRIBUTION WIDTH 14.1 % (11.5-14.5); WHITE BLOOD COUNT 11.9 X10'3 (4.5-11.0)
[2020-08-18 13:11] LABS: ALANINE AMINOTRANSFERASE 20 U/L (12-78); ALBUMIN 3.6 G/DL (3.4-5.0); ALBUMIN/GLOBULIN RATIO 0.8 (1.1-1.5); ALKALINE PHOSPHATASE 63 IU/L (46-116); ANION GAP 12 (8-16); ASPARTATE AMINO TRANSFERASE 18 U/L (10-37); BILIRUBIN,TOTAL 0.3 MG/DL (0.1-1.0); BLOOD UREA NITROGEN 23 MG/DL (7-18); BUN/CREATININE RATIO 20.2 (5.4-32.0); CALCIUM 9.3 MG/DL (8.5-10.1); CHLORIDE 105 MMOL/L (99-107); CREATININE 1.14 MG/DL (0.60-1.10); GLUCOSE 70 MG/DL (70-104); POTASSIUM 3.8 MMOL/L (3.5-5.1); SODIUM 144 MMOL/L (135-145); TOTAL PROTEIN 7.9 G/DL (6.4-8.2); eGFR 63 ML/MIN
[2020-08-18] MEDS ORDERED: aspirin 81mg tab.chew PO ONE (13:40)
[2020-08-18] MEDS ORDERED: ondansetron/PF 4mg/2ml inj IV PRN (13:50)
[2020-08-18] MEDS ORDERED: magnesium 2GM in 50ml NS 50 ML IV PRN (13:50)
[2020-08-18] MEDS ORDERED: acetaminophen 325mg tablet PO PRN (13:50)
[2020-08-18] MEDS ORDERED: potassium Cl 40MEQ/1/2NS 520ml 520 ML IV PRN ×2 (13:50)
[2020-08-18] MEDS ORDERED: magnesium Cl slow-release 64mg tablet PO PRN (13:50)
[2020-08-18] MEDS ORDERED: potassium Cl 20 mEq SR tablet PO PRN ×2 (13:50)
[2020-08-18] MEDS ORDERED: magnesium 4gm in 100ml NS 100 ML IV PRN (13:50)
[2020-08-18 16:00] VITALS: BP 114/75
[2020-08-18] MEDS ORDERED: ALPRAZolam 0.25mg tablet PO PRN (16:40)
[2020-08-18] MEDS ORDERED: nitroGLYCERIN 0.4mg SUBLingual tab SL SCH (16:40)
--- NOTE | 2020-08-18 17:13 | NUR ---
patient taking leads off, walking around, and states he is not going to be tied up in bed to all these wires. patient states he will take off his leads when he feels like it. patients threatens me that he knows who has a lot of influence in the hospital. patient educated on why he is on continuous telemetry and pulse oximetry. patient refuses to have pulse oximetry connected. states he understands why he has all the monitoring and to stop educating him about it.
--- NOTE | 2020-08-18 18:32 | NUR ---
SBAR report given to traveler RN, EMAR reviewed, questions answered, and plan of care discussed.
[2020-08-18 19:00] VITALS: BP 111/80
[2020-08-18] MEDS: K and/or MAG REPLACEMENT MC SCH (20:00)
[2020-08-18] MEDS: acetaminophen 325mg tablet PO SCH (20:50)
[2020-08-18] MEDS: buPROPion SR 150mg tablet PO SCH (20:51)
[2020-08-18] MEDS: heparin, porcine 5000 units/ml vial SQ SCH (20:52)
[2020-08-18] MEDS: cholecalciferol (vitamin D) 400 unit tablet PO SCH (20:52)
[2020-08-18] MEDS ORDERED: traZODone 50mg tablet PO SCH (21:00)
[2020-08-18] MEDS ORDERED: temazepam 15mg capsule PO PRN (21:00)
[2020-08-19 01:13] VITALS: BP 137/72
[2020-08-19 03:45] VITALS: BP 125/68
[2020-08-19 06:07] LABS: BASOPHILS % (AUTO) 0.4 % (0-1); EOSINOPHILS # (AUTO) 0.1 X10'3 (0-0.9); EOSINOPHILS % (AUTO) 0.7 % (0-6); HEMATOCRIT 37.4 % (42.0-52.0); HEMOGLOBIN 12.7 g/dl (14.0-17.9); LYMPHOCYTES # (AUTO) 2.5 X10'3 (1.1-4.8); LYMPHOCYTES % (AUTO) 20.8 % (21-51); MEAN CORPUSCULAR HEMOGLOBIN 31.8 PG (27.0-31.0); MEAN CORPUSCULAR HGB CONC 33.9 g/dL (33.0-36.5); MEAN CORPUSCULAR VOLUME 93.9 FL (78-98); MEAN PLATELET VOLUME 8.1 FL (7.4-10.4); MONOCYTES # (AUTO) 1.3 X10'3 (0-0.9); NEUTROPHILS # (AUTO) 8.1 X10'3 (1.8-7.7); NEUTROPHILS % (AUTO) 67.1 % (42-75); PLATELET COUNT 259 X10'3 (140-440); RED BLOOD COUNT 3.98 X10'6 (4.70-6.10); RED CELL DISTRIBUTION WIDTH 13.7 % (11.5-14.5)
[2020-08-19 06:16] LABS: ALBUMIN 3.1 G/DL (3.4-5.0); ANION GAP 9 (8-16); BLOOD UREA NITROGEN 25 MG/DL (7-18); BUN/CREATININE RATIO 21.7 (5.4-32.0); CHLORIDE 106 MMOL/L (99-107); CREATININE 1.15 MG/DL (0.60-1.10); GLUCOSE 90 MG/DL (70-104); MAGNESIUM 2.3 MG/DL (1.5-2.4); POTASSIUM 4.5 MMOL/L (3.5-5.1); SODIUM 141 MMOL/L (135-145); TOTAL CARBON DIOXIDE 26.4 MMOL/L (24-32); eGFR 62 ML/MIN
[2020-08-19] MEDS ORDERED: BORAGE PO SCH (08:00)
[2020-08-19] MEDS: K and/or MAG REPLACEMENT MC SCH (08:00)
[2020-08-19] MEDS ORDERED: pantoprazole 40mg Tablet.DR PO SCH (08:00)
[2020-08-19] MEDS ORDERED: atorvastatin 20mg tablet PO SCH (08:00)
[2020-08-19] MEDS ORDERED: metoprolol succinate 25mg (24-HOUR) SR. Tablet PO SCH (08:00)
[2020-08-19] MEDS ORDERED: buprenorphine/naloxone 2-0.5mg sublingual tablet SL SCH (08:00)
[2020-08-19] MEDS: lactobacillus rhamnosus 10,000 MMU CELLS/CAPSULE PO SCH ×2 (08:00→09:15)
[2020-08-19] MEDS ORDERED: FLAX PO SCH (08:00)
[2020-08-19] MEDS ORDERED: [UNRECOGNIZED DRUG - OTHER] PO SCH (08:00)
[2020-08-19] MEDS ORDERED: levoTHYROXINE 112mcg tablet PO SCH (08:00)
[2020-08-19] MEDS ORDERED: tamsulosin 0.4mg capsule PO SCH (08:00)
[2020-08-19] MEDS ORDERED: duloxetine 30mg CAPSULE.DR PO SCH (08:00)
[2020-08-19] MEDS ORDERED: multivitamins, therapeutics tablet PO SCH (08:00)
[2020-08-19] MEDS ORDERED: FISH OIL PO SCH (08:00)
[2020-08-19 08:42] VITALS: BP 128/73
[2020-08-19] MEDS: buPROPion SR 150mg tablet PO SCH (09:14)
[2020-08-19] MEDS: cholecalciferol (vitamin D) 400 unit tablet PO SCH (09:15)
[2020-08-19] MEDS: heparin, porcine 5000 units/ml vial SQ SCH (09:28)
[2020-08-19 10:30] VITALS: BP 90/49
[2020-08-19 11:05] VITALS: BP 131/74
[2020-08-19 15:00] VITALS: BP 137/78
[2020-08-19] MEDS: acetaminophen 325mg tablet PO SCH (15:00)
== END 2020-08-19 17:00 | disposition home or self-care (01) ==
LOC: ER 11:30 → ED HOLD 13:44 → MED 3N 16:00
PROVIDERS: ADMIT Internal Medicine; ATTEND Internal Medicine
DX: R07.89 Other chest pain (principal); Z20.822 Contact with and (suspected) exposure to COVID-19; I25.10 Atherosclerotic heart disease of native coronary artery without angina pectoris; E78.5 Hyperlipidemia, unspecified; F32.9 Major depressive disorder, single episode, unspecified; F41.9 Anxiety disorder, unspecified; E03.9 Hypothyroidism, unspecified; I10 Essential (primary) hypertension; K21.9 Gastro-esophageal reflux disease without esophagitis; N40.0 Benign prostatic hyperplasia without lower urinary tract symptoms; I24.9 Acute ischemic heart disease, unspecified; G47.33 Obstructive sleep apnea (adult) (pediatric); I27.20 Pulmonary hypertension, unspecified; E78.00 Pure hypercholesterolemia, unspecified; E11.9 Type 2 diabetes mellitus without complications; I25.2 Old myocardial infarction; Z87.891 Personal history of nicotine dependence; Z95.1 Presence of aortocoronary bypass graft; Z99.89 Dependence on other enabling machines and devices; Z87.442 Personal history of urinary calculi; Z79.899 Other long term (current) drug therapy; Z88.5 Allergy status to narcotic agent
CPT/HCPCS: 36415; 71045; 80048; 80053; 83735; 83880; 84484; 85025; 87635; 93005; 93306; 96372; 99285; C9803; G0378; J1644

== ENCOUNTER 2020-09-07 10:59 | Day surgery (SDC) | payer MEDICARE ==
[2020-09-02 13:46] LABS: BASOPHILS # (AUTO) 0.1 X10'3 (0-0.2); BASOPHILS % (AUTO) 0.6 % (0-1); EOSINOPHILS # (AUTO) 0.3 X10'3 (0-0.9); EOSINOPHILS % (AUTO) 2.6 % (0-6); HEMATOCRIT 38.5 % (42.0-52.0); HEMOGLOBIN 12.8 g/dl (14.0-17.9); LYMPHOCYTES # (AUTO) 2.5 X10'3 (1.1-4.8); LYMPHOCYTES % (AUTO) 24.4 % (21-51); MEAN CORPUSCULAR HEMOGLOBIN 32.2 PG (27.0-31.0); MEAN CORPUSCULAR HGB CONC 33.4 g/dL (33.0-36.5); MEAN CORPUSCULAR VOLUME 96.4 FL (78-98); MEAN PLATELET VOLUME 8.1 FL (7.4-10.4); MONOCYTES # (AUTO) 1.1 X10'3 (0-0.9); MONOCYTES % (AUTO) 10.7 % (2-12); NEUTROPHILS # (AUTO) 6.3 X10'3 (1.8-7.7); NEUTROPHILS % (AUTO) 61.7 % (42-75); PLATELET COUNT 249 X10'3 (140-440); RED BLOOD COUNT 3.99 X10'6 (4.70-6.10); RED CELL DISTRIBUTION WIDTH 14.7 % (11.5-14.5); WHITE BLOOD COUNT 10.2 X10'3 (4.5-11.0)
[2020-09-02 13:50] LABS: ALBUMIN 3.2 G/DL (3.4-5.0); ANION GAP 9 (8-16); BLOOD UREA NITROGEN 33 MG/DL (7-18); BUN/CREATININE RATIO 25.8 (5.4-32.0); CHLORIDE 104 MMOL/L (99-107); CREATININE 1.28 MG/DL (0.60-1.10); GLUCOSE 85 MG/DL (70-104); POTASSIUM 4.5 MMOL/L (3.5-5.1); SODIUM 139 MMOL/L (135-145); TOTAL CARBON DIOXIDE 25.9 MMOL/L (24-32); eGFR 55 ML/MIN
[2020-09-02 13:54] LABS: PARTIAL THROMBOPLASTIN TIME 32 SECONDS (22-32)
[~2020-09-07] VITALS: Ht 172.7 cm; Wt 115.9 kg
[2020-09-07] VITALS (9 sets, daily range): BP systolic 110–130; BP diastolic 52–74
[~2020-09-07 10:59] MED LIST changes: -IBUP-1986 PO; -ISOS30TA10 PO; -ISOS30TA84 PO; -METH-360 PO; -WALKERFR
[2020-09-07] MEDS ORDERED: normal saline 1,000 ML IV SCH (11:15)
[2020-09-07] MEDS ORDERED: LORazepam 0.5 MG tablet PO PRN (11:15)
[2020-09-07] MEDS ORDERED: diphenhydrAMINE 25mg capsule PO PRN (11:15)
[2020-09-07] MEDS ORDERED: POLY17PO10 PO (11:54)
[2020-09-07] MEDS ORDERED: MULT-1085 PO (11:54)
[2020-09-07] MEDS ORDERED: [UNRECOGNIZED DRUG - OTHER] (11:54)
[2020-09-07] MEDS ORDERED: ONDA4TAB6 PO (11:54)
[2020-09-07] MEDS ORDERED: MELA3TAB70 PO (11:54)
[2020-09-07] MEDS ORDERED: CETI10TA18 PO (11:57)
[2020-09-07] MEDS ORDERED: BUSP10TA11 PO (11:57)
[2020-09-07] MEDS ORDERED: LASIX (11:57)
[2020-09-07] MEDS ORDERED: OMEG1CAP2 (11:57)
[2020-09-07] MEDS ORDERED: LIDOcaine 1% (10mg/ml)w/preservative injection 20ml MDV ONE (12:02)
[2020-09-07] MEDS ORDERED: heparin 1,000unit/ml 10ml vial 10 ML ONE (12:02)
[2020-09-07] MEDS ORDERED: verapamil 2.5 mg/ml inj IV ONE (12:02)
[2020-09-07] MEDS ORDERED: fentaNYL/PF 50MCG/1 ML 2ML syringe ONE ×2 (12:02→13:07)
[2020-09-07] MEDS ORDERED: midazolam 1 mg/ML 2ml injection ONE ×3 (12:02→13:06)
[2020-09-07] MEDS ORDERED: iohexol 350MG/ML 100ml bottle IV ONE ×2 (12:02→13:26)
[2020-09-07] MEDS ORDERED: nitroGLYCERIN-Tridil 50MG/D5W 250 ML IV ONE (12:02)
[2020-09-07] MEDS ORDERED: proCHLORperazine 10 MG/2 ml inj ONE (13:07)
[2020-09-07] MEDS ORDERED: OXAZEpam 15mg capsule PO PRN (14:00)
[2020-09-07] MEDS ORDERED: nitroGLYCERIN 0.4mg SUBLingual tab SL PRN (14:00)
[2020-09-07] MEDS ORDERED: HYDROcodone/acetaminophen 5mg/325mg tablet PO PRN (14:00)
[2020-09-07] MEDS ORDERED: proCHLORperazine 10 MG/2 ml inj IV PRN (14:00)
[2020-09-07] MEDS ORDERED: ondansetron/PF 4mg/2ml inj IV PRN (14:00)
[2020-09-07] MEDS ORDERED: HYDROcodone/acetaminophen 10/325mg tab PO PRN (14:00)
== END 2020-09-07 17:00 | disposition home or self-care (01) ==
LOC: SSTAY O 10:59
PROVIDERS: ATTEND Internal Medicine Interventional Cardiology
DX: R94.39 Abnormal result of other cardiovascular function study (principal); R07.2 Precordial pain; T82.857A Stenosis of other cardiac prosthetic devices, implants and grafts, initial encounter; I25.10 Atherosclerotic heart disease of native coronary artery without angina pectoris; I25.82 Chronic total occlusion of coronary artery; I10 Essential (primary) hypertension; E78.5 Hyperlipidemia, unspecified; G47.33 Obstructive sleep apnea (adult) (pediatric); E03.9 Hypothyroidism, unspecified; I25.2 Old myocardial infarction; K21.9 Gastro-esophageal reflux disease without esophagitis; F32.9 Major depressive disorder, single episode, unspecified; G89.29 Other chronic pain; Z87.442 Personal history of urinary calculi; Z88.5 Allergy status to narcotic agent; Z87.891 Personal history of nicotine dependence; Y83.8 Other surgical procedures as the cause of abnormal reaction of the patient, or of later complication, without mention of misadventure at the time of the procedure; Y92.89 Other specified places as the place of occurrence of the external cause
CPT/HCPCS: 36415; 80048; 85025; 85610; 85730; 93005; 93459; 93567; 99152; 99153; C1769; J0780; J1644; J2001; J2250; J3010; J7030; Q0163; Q9967; A4620; A6258; J3490

== ENCOUNTER 2021-03-18 20:33 | Emergency (ER) | payer OTHER, MEDICARE ==
[~2021-03-18] VITALS: Ht 172.7 cm; Wt 106.8 kg
[~2021-03-18 20:33] MED LIST changes: -ACET-812 PO; +BUSP10TA11 PO; +CETI10TA18 PO; -CHOL400T14 PO; -FISH12002 PO; -LACT1CAP65 PO; +LASIX; +MELA3TAB70 PO; +MULT-1085 PO; -MULT-933 PO; +OMEG1CAP2; +ONDA4TAB6 PO; +POLY17PO10 PO; -TAMS0.4C32 PO; +[UNRECOGNIZED DRUG - OTHER]
[2021-03-18 20:35] VITALS: BP 111/93
[2021-03-18] MEDS ORDERED: GOLYS PO (22:45)
--- NOTE | 2021-03-18 23:00 | NUR ---
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 BS commode placed. Alot of stool that is hard in the vault.
== END 2021-03-18 23:30 | disposition home or self-care (01) ==
LOC: ER 20:33
DX: K59.03 Drug induced constipation (principal); T40.0X5A Adverse effect of opium, initial encounter; G89.29 Other chronic pain; I25.10 Atherosclerotic heart disease of native coronary artery without angina pectoris; E78.00 Pure hypercholesterolemia, unspecified; I10 Essential (primary) hypertension; I25.2 Old myocardial infarction; G47.30 Sleep apnea, unspecified; E03.9 Hypothyroidism, unspecified; Z87.440 Personal history of urinary (tract) infections; Z95.5 Presence of coronary angioplasty implant and graft; Z72.89 Other problems related to lifestyle; Z88.5 Allergy status to narcotic agent; Z88.8 Allergy status to other drugs, medicaments and biological substances; Z79.899 Other long term (current) drug therapy; Y92.89 Other specified places as the place of occurrence of the external cause
CPT/HCPCS: 99284

== ENCOUNTER 2021-06-02 14:15 | Emergency (ER) | payer OTHER, MEDICARE ==
[~2021-06-02] VITALS: Ht 170.2 cm; Wt 109.1 kg
[~2021-06-02 14:15] MED LIST changes: -CETI10TA18 PO; +CETI10TA19 PO; +GOLYS PO
[2021-06-02] MEDS ORDERED: fentaNYL/PF 50MCG/1 ML 2ML syringe IV ONE ×2 (14:25→15:25)
[2021-06-02] MEDS ORDERED: tamsulosin 0.4mg capsule PO ONE (14:25)
[2021-06-02] MEDS ORDERED: normal saline 1000ML IV soln IVB ONE (14:25)
[2021-06-02 15:01] LABS: BASOPHILS % (AUTO) 0.3 % (0-1); EOSINOPHILS # (AUTO) 0.2 X10'3 (0-0.9); EOSINOPHILS % (AUTO) 1.9 % (0-6); HEMATOCRIT 31.9 % (42.0-52.0); LYMPHOCYTES # (AUTO) 1.9 X10'3 (1.1-4.8); LYMPHOCYTES % (AUTO) 18.3 % (21-51); MEAN CORPUSCULAR HEMOGLOBIN 32.1 PG (27.0-31.0); MEAN CORPUSCULAR HGB CONC 34.6 g/dL (33.0-36.5); MEAN CORPUSCULAR VOLUME 92.8 FL (78-98); MEAN PLATELET VOLUME 8.1 FL (7.4-10.4); MONOCYTES # (AUTO) 1.1 X10'3 (0-0.9); MONOCYTES % (AUTO) 10.8 % (2-12); NEUTROPHILS # (AUTO) 7.3 X10'3 (1.8-7.7); NEUTROPHILS % (AUTO) 68.7 % (42-75); PLATELET COUNT 196 X10'3 (140-440); RED BLOOD COUNT 3.44 X10'6 (4.70-6.10); RED CELL DISTRIBUTION WIDTH 13.9 % (11.5-14.5); WHITE BLOOD COUNT 10.6 X10'3 (4.5-11.0)
[2021-06-02 15:12] LABS: ALANINE AMINOTRANSFERASE 19 U/L (12-78); ALBUMIN 3.3 G/DL (3.4-5.0); ALBUMIN/GLOBULIN RATIO 0.8 (1.1-1.5); ALKALINE PHOSPHATASE 70 IU/L (46-116); ANION GAP 11 (8-16); ASPARTATE AMINO TRANSFERASE 20 U/L (10-37); BILIRUBIN,TOTAL 0.3 MG/DL (0.1-1.0); BLOOD UREA NITROGEN 29 MG/DL (7-18); BUN/CREATININE RATIO 18.8 (5.4-32.0); CHLORIDE 106 MMOL/L (99-107); CREATININE 1.54 MG/DL (0.60-1.10); GLUCOSE 119 MG/DL (70-104); POTASSIUM 4.2 MMOL/L (3.5-5.1); SODIUM 142 MMOL/L (135-145); TOTAL CARBON DIOXIDE 24.8 MMOL/L (24-32); TOTAL PROTEIN 7.3 G/DL (6.4-8.2); eGFR 44 ML/MIN
[2021-06-02] MEDS ORDERED: oxyCODONE/APAP 5-325mg tablet PO ONE (15:30)
[2021-06-02 16:12] LABS: CLARITY,URINE CLEAR (Clear); COLOR,URINE YELLOW (Yellow); GLUCOSE, URINE NEGATIVE (Neg); KETONES,URINE NEGATIVE (Neg); LEUKOCYTE ESTERASE ,URINE TRACE (Neg); NITRITES, URINE NEGATIVE (Neg); OCCULT BLOOD,URINE MODERATE (Neg); PH,URINE 7.5 (4.8-8.0); PROTEIN,URINE NEGATIVE (Neg); UROBILINOGEN,URINE 0.2 E.U/dL (0.2-1.0)
[2021-06-02 16:30] LABS: UA COLLECTION TYPE NON-SPECIFIED
[2021-06-02 16:31] LABS: SQUAMOUS EPITHELIAL CELL,UR FEW /LPF (FEW); WBC CLUMPS,URINE FEW /HPF (NEGATIVE)
[2021-06-02 16:32] LABS: BACTERIA,URINE FEW /HPF (Neg)
[2021-06-02] MEDS ORDERED: CefTRIAXone 2gm/D5W 50ml BAG 50 ML IV ONE (16:40)
[2021-06-02 17:25] VITALS: BP 166/90
[2021-06-02] MEDS ORDERED: OXYC-145 PO (17:27)
[2021-06-02] MEDS ORDERED: ONDA4TAB6 PO (17:27)
[2021-06-02] MEDS ORDERED: CEPH250T PO (17:27)
== END 2021-06-02 17:47 | disposition home or self-care (01) ==
LOC: ER 14:15
DX: N39.0 Urinary tract infection, site not specified (principal); N20.0 Calculus of kidney; R11.2 Nausea with vomiting, unspecified; R10.31 Right lower quadrant pain; N13.30 Unspecified hydronephrosis; I25.10 Atherosclerotic heart disease of native coronary artery without angina pectoris; E78.00 Pure hypercholesterolemia, unspecified; I10 Essential (primary) hypertension; I25.2 Old myocardial infarction; E03.9 Hypothyroidism, unspecified; G89.29 Other chronic pain; F32.9 Major depressive disorder, single episode, unspecified; Z87.442 Personal history of urinary calculi; Z98.890 Other specified postprocedural states; Z72.89 Other problems related to lifestyle; Z88.5 Allergy status to narcotic agent; Z79.2 Long term (current) use of antibiotics; Z79.899 Other long term (current) drug therapy
CPT/HCPCS: 36415; 74176; 80053; 81001; 85025; 87077; 87088; 87186; 93005; 96361; 96365; 96375; 96376; 99285; J0696; J3010; J7030

== ENCOUNTER 2023-01-01 11:36 | Emergency (ER) | payer OTHER, MEDICARE ==
[~2023-01-01] VITALS: Ht 167.6 cm; Wt 90.0 kg
[~2023-01-01 11:36] MED LIST changes: -ATOR20TA66 PO; -BUSP10TA11 PO; -CETI10TA19 PO; -GOLYS PO; -MULT-1085 PO; -OMEG1CAP2; -POLY17PO10 PO; -[UNRECOGNIZED DRUG - OTHER]
[2023-01-01 11:42] VITALS: BP 125/78
[2023-01-01 12:29] LABS: BASOPHILS % (AUTO) 0.4 % (0-1); EOSINOPHILS # (AUTO) 0.7 X10'3 (0-0.9); EOSINOPHILS % (AUTO) 6.5 % (0-6); HEMOGLOBIN 12.1 g/dl (14.0-17.9); LYMPHOCYTES # (AUTO) 2.3 X10'3 (1.1-4.8); LYMPHOCYTES % (AUTO) 22.5 % (21-51); MEAN CORPUSCULAR HGB CONC 32.8 g/dL (33.0-36.5); MEAN CORPUSCULAR VOLUME 91.3 FL (78-98); MEAN PLATELET VOLUME 8.8 FL (7.4-10.4); MONOCYTES # (AUTO) 1.4 X10'3 (0-0.9); MONOCYTES % (AUTO) 13.4 % (2-12); NEUTROPHILS # (AUTO) 5.9 X10'3 (1.8-7.7); NEUTROPHILS % (AUTO) 57.2 % (42-75); PLATELET COUNT 232 X10'3 (140-440); RED BLOOD COUNT 4.05 X10'6 (4.70-6.10); RED CELL DISTRIBUTION WIDTH 14.9 % (11.5-14.5); WHITE BLOOD COUNT 10.3 X10'3 (4.5-11.0)
[2023-01-01 12:37] LABS: ALANINE AMINOTRANSFERASE 21 U/L (12-78); ALBUMIN 3.1 G/DL (3.4-5.0); ALBUMIN/GLOBULIN RATIO 0.8 (1.1-1.5); ALKALINE PHOSPHATASE 71 IU/L (46-116); ANION GAP 10 (8-16); ASPARTATE AMINO TRANSFERASE 17 U/L (10-37); BILIRUBIN,TOTAL 0.3 MG/DL (0.1-1.0); BLOOD UREA NITROGEN 22 MG/DL (7-18); BUN/CREATININE RATIO 16.4 (10.0-20.0); CALCIUM 8.6 MG/DL (8.5-10.1); CHLORIDE 105 MMOL/L (99-107); CREATININE 1.34 MG/DL (0.60-1.10); GLUCOSE 105 MG/DL (70-104); POTASSIUM 4.6 MMOL/L (3.5-5.1); SODIUM 139 MMOL/L (135-145); TOTAL CARBON DIOXIDE 24.3 MMOL/L (24-32); eGFR 52 ML/MIN
[2023-01-01 12:45] LABS: MAGNESIUM 1.9 MG/DL (1.5-2.4)
== END 2023-01-01 14:49 | disposition home or self-care (01) ==
LOC: ER 11:36
DX: R07.89 Other chest pain (principal); E78.00 Pure hypercholesterolemia, unspecified; I10 Essential (primary) hypertension; E03.9 Hypothyroidism, unspecified; Z88.5 Allergy status to narcotic agent
CPT/HCPCS: 36415; 71045; 80053; 83735; 83880; 84484; 85025; 85610; 93005; 99285

== ENCOUNTER 2023-04-18 16:38 | Emergency (ER) | payer OTHER, MEDICARE ==
[~2023-04-18] VITALS: Ht 170.2 cm; Wt 70.0 kg
[2023-04-18] MEDS ORDERED: normal saline 1000ML IV soln IVB ONE (18:00)
[2023-04-18] MEDS ORDERED: ondansetron/PF 4mg/2ml inj IV ONE (18:00)
[2023-04-18] MEDS ORDERED: pantoprazole 40 MG vial IV ONE (18:00)
[2023-04-18] MEDS ORDERED: LORazepam 2 mg/ml vial IV ONE (18:00)
[2023-04-18] MEDS ORDERED: pantoprazole 40 MG/NS 100ML add-vantage BAG IV ONE (18:15)
[2023-04-18 18:21] LABS: BASOPHILS # (AUTO) 0.1 X10'3 (0-0.2); BASOPHILS % (AUTO) 0.4 % (0-1); EOSINOPHILS # (AUTO) 0.2 X10'3 (0-0.9); EOSINOPHILS % (AUTO) 1.7 % (0-6); HEMATOCRIT 41.4 % (42.0-52.0); HEMOGLOBIN 13.8 g/dl (14.0-17.9); LYMPHOCYTES # (AUTO) 1.9 X10'3 (1.1-4.8); MEAN CORPUSCULAR HEMOGLOBIN 30.6 PG (27.0-31.0); MEAN CORPUSCULAR HGB CONC 33.4 g/dL (33.0-36.5); MEAN CORPUSCULAR VOLUME 91.6 FL (78-98); MEAN PLATELET VOLUME 8.2 FL (7.4-10.4); MONOCYTES # (AUTO) 1.3 X10'3 (0-0.9); MONOCYTES % (AUTO) 9.2 % (2-12); NEUTROPHILS # (AUTO) 10.9 X10'3 (1.8-7.7); NEUTROPHILS % (AUTO) 75.7 % (42-75); PLATELET COUNT 287 X10'3 (140-440); RED BLOOD COUNT 4.52 X10'6 (4.70-6.10); RED CELL DISTRIBUTION WIDTH 14.9 % (11.5-14.5); WHITE BLOOD COUNT 14.4 X10'3 (4.5-11.0)
[2023-04-18 18:27] VITALS: TEMP 98
[2023-04-18 18:35] LABS: APTT 33 SECONDS (22-32); INR 0.9 INR; PROTHROMBIN TIME 10.1 SECONDS (9.0-12.0)
[2023-04-18 18:40] LABS: ALANINE AMINOTRANSFERASE 26 U/L (12-78); ALBUMIN 3.3 G/DL (3.4-5.0); ALBUMIN/GLOBULIN RATIO 0.7 (1.1-1.5); ALKALINE PHOSPHATASE 71 IU/L (46-116); ANION GAP 5 (8-16); ASPARTATE AMINO TRANSFERASE 22 U/L (10-37); BILIRUBIN,TOTAL 0.4 MG/DL (0.1-1.0); BLOOD UREA NITROGEN 23 MG/DL (7-18); CALCIUM 9.7 MG/DL (8.5-10.1); CHLORIDE 102 MMOL/L (99-107); CREATININE 1.44 MG/DL (0.60-1.10); GLUCOSE 123 MG/DL (70-104); MAGNESIUM 2.1 MG/DL (1.5-2.4); POTASSIUM 4.6 MMOL/L (3.5-5.1); SODIUM 135 MMOL/L (135-145); TOTAL PROTEIN 7.9 G/DL (6.4-8.2); eCRCL 40 ML/MIN; eGFR 47 ML/MIN
[2023-04-18 18:41] LABS: LIPASE 75 U/L (16-77)
[2023-04-18] MEDS ORDERED: iohexol 300mg/ml 100ml inj. ONE (18:50)
[2023-04-18 18:55] LABS: BILIRUBIN,URINE NEGATIVE (Neg); CLARITY,URINE CLEAR (Clear); COLOR,URINE YELLOW (Yellow); GLUCOSE, URINE NEGATIVE (Neg); KETONES,URINE NEGATIVE (Neg); LEUKOCYTE ESTERASE ,URINE TRACE (Neg); NITRITES, URINE NEGATIVE (Neg); OCCULT BLOOD,URINE NEGATIVE (Neg); PROTEIN,URINE NEGATIVE (Neg); UROBILINOGEN,URINE 0.2 E.U/dL (0.2-1.0)
[2023-04-18 19:09] LABS: UA COLLECTION TYPE CLN CATCH MIDSTREAM
[2023-04-18 19:24] LABS: BACTERIA,URINE FEW /HPF (Neg); MUCUS STRANDS MANY /LPF (Neg); SQUAMOUS EPITHELIAL CELL,UR MODERATE /LPF (FEW); TRANSITIONAL EPI CELLS,URINE FEW /HPF
[2023-04-18 19:30] LABS: YEAST FEW /HPF (NEGATIVE)
[2023-04-18] MEDS ORDERED: METO-292 PO (21:33)
[2023-04-18] MEDS ORDERED: BISA-155 PO (21:33)
[2023-04-18] MEDS ORDERED: PANT-47 PO (21:33)
[2023-04-18] MEDS ORDERED: DICY10CA88 PO (21:33)
[2023-04-18] MEDS ORDERED: NA P230E PR (23:02)
[2023-04-19 00:01] VITALS: BP 122/91; PULSE 89; RESP 20; O2SAT 96
== END 2023-04-19 00:02 | disposition home or self-care (01) ==
LOC: ER 16:39
DX: R10.9 Unspecified abdominal pain (principal); I10 Essential (primary) hypertension
CPT/HCPCS: 36415; 71045; 74177; 80053; 81001; 83690; 83735; 84484; 85025; 85610; 85730; 87088; 93005; 96361; 96374; 96375; 99285; C9113; J2060; J2405; J3490; J7030; Q9967

== ENCOUNTER 2024-12-25 19:35 | Emergency (ER) | payer OTHER ==
[~2024-12-25] VITALS: Ht 170.2 cm; Wt 113.6 kg
[~2024-12-25 19:35] MED LIST changes: +BISA-155 PO; +DICY10CA88 PO; +METO-292 PO; +NA P230E PR
--- NOTE | 2024-12-25 19:40 | Physician Documentation ---
History of Present Illness ~ Stated Complaint: CHOKING Time Seen by MD: 19:40 Primary Medical Doctor: bianca silverman HPI Patient presents to the emergency room for evaluation of food stuck in his throat. Patient was eating some chicken when he got it stuck in his throat. He is able to cough up some but still feels as if that has some stuck in there. Medication Reconciliation Allergies: Coded Allergies: morphine (Unverified Allergy, Unknown, RASH, 12/25/24) Scheduled Alprazolam (Alprazolam), 1 TAB PO QDAY PRN, (Reported) Bisacodyl (Dulcolax), 2 TAB PO UD Buprenorphine HCl/Naloxone HCl (Buprenorphn-Naloxn 2-0.5 mg Tb), 1 TAB SL DAILY, (Reported) Bupropion Hcl SR* (Wellbutrin SR*), 300 MG PO QAM, (Reported) Dicyclomine Hcl* (Bentyl*), 1 CAP PO TID Duloxetine Hcl* (Cymbalta*), 2 CAP PO DAILY, (Reported) Levothyroxine Sodium* (Levoxyl*), 112 MCG PO DAILY, (Reported) Melatonin (Melatonin), PO HS, (Reported) Metoclopramide HCl (Reglan), 1 TAB PO Q8H Metoprolol Succinate (Metoprolol Succinate), 1 TAB PO DAILY, (Reported) Na Phos,M-B/Na Phos,Di-Ba (Fleet Enema Extra), 197 ML [place] TID Nitroglycerin (Nitrostat), 1 TAB SL UD, (Reported) Pantoprazole Sodium (PROTONIX tablet), 1 TABLET PO DAILY, (Reported) Pantoprazole Sodium (PROTONIX tablet), 1 TAB PO DAILY Trazodone HCl (Trazodone HCl), 1 TAB PO HS, (Reported) Scheduled PRN Ondansetron Hcl (Zofran), 1 TAB PO Q6H PRN for nausea/vomiting, (Reported) Miscellaneous Medications [Lasix], (Reported) Past Medical History Past Medical History: Cataracts, Coronary Artery Disease, High Cholesterol, Hypertension, Myocardial Infarction, Sleep Apnea, Constipation, BPH, Kidney Stones, UTI, Hypothyroidism, Chronic Pain, Chronic Back Pain, Depression Past Surgical History: coronary bypass surgery, orthopedic surgeries, other Other Past Surgical History: cataract surgery Alcohol Use: Occasionally Drug Use: none Lives with: Spouse Lives In: Home Occupation: retired Review of Systems ROS All review of systems negative except as per HPI Physical Exam Physical Exam General: Patient is awake, alert, oriented x4 in no acute distress Head: Normocephalic and atraumatic. Eyes: Conjunctival normal. EOMI. PERRL. ENT: Mucous membranes moist. Maintaining secretions Neck: Supple, trachea is midline. Chest: Clear to auscultation bilaterally without rales, rhonchi, or wheezes. There is no accessory muscle use or retractions. Cardiac: RRR without murmurs, gallops, or rubs. Abd: Soft, nondistended, nontender, with normoactive bowel sounds. No guarding, rebound, or rigidity. Progress Results/Orders Results/Orders Vital Signs 12/25/24 12/25/24 19:37 19:43 Temp 98.4 98.4 Pulse 91 87 Resp 18 16 B/P (MAP) 112/68 112/68 (83) Pulse Ox 94 94 Medical Decision Making Findings Patient states he is feeling better. He is able to drank some water without limitations. Patient presented to the emergency room for evaluation of feeling as if food bolus stuck in his throat. Differentials include but are not limited to food bolus stuck in throat, esophageal spasm, esophageal abrasion. Given re- evaluation that patient is feeling better and able to tolerate liquids I do not feel he was suffering from a food bolus being stuck in his throat. Been instructed to [employer] food thoroughly. I do not feel emergent labs or imaging is necessary Departure Disposition: 01 HOME / SELF CARE / HOMELESS Impression: Primary Impression: Sensation of foreign body in esophagus Condition: Improved Discharge Instructions: General Discharge Instructions Referrals: NO PRIMARY CARE PROVIDER (PCP) Education Educated: Patient Educated regarding: diagnosis, need for follow up Signature Scribe Signature: No scribe Attestation: The note accurately reflects work and decisions made by me.Lawrence Gomez MD 12/25/24 19:58 LAWRENCE GOMEZ MD Dec 25, 2024 19:40
[2024-12-25 19:43] VITALS: BP 112/68; PULSE 87; RESP 16; TEMP 98.4; O2SAT 94
== END 2024-12-25 20:07 | disposition home or self-care (01) ==
LOC: ER 19:36
DX: T18.128A Food in esophagus causing other injury, initial encounter (principal); I10 Essential (primary) hypertension; I25.10 Atherosclerotic heart disease of native coronary artery without angina pectoris; I25.2 Old myocardial infarction; E78.00 Pure hypercholesterolemia, unspecified; E03.9 Hypothyroidism, unspecified; G47.30 Sleep apnea, unspecified; F32.A Depression, unspecified; Z88.5 Allergy status to narcotic agent; Z95.1 Presence of aortocoronary bypass graft; Z79.899 Other long term (current) drug therapy; Z87.442 Personal history of urinary calculi; Z72.89 Other problems related to lifestyle; W44.F3XA Food entering into or through a natural orifice, initial encounter; Y93.89 Activity, other specified; Y92.89 Other specified places as the place of occurrence of the external cause; Y99.8 Other external cause status
CPT/HCPCS: 99283

== ENCOUNTER 2025-02-07 21:38 | Emergency (ER) | payer OTHER ==
[~2025-02-07] VITALS: Ht 170.2 cm; Wt 91.8 kg
--- NOTE | 2025-02-07 21:59 | ELECTROCARDIOGRAPH REPORT ---
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 Jama Montano Measurements Intervals [place] Rate: 102 P: 21 MT: 133 QRS: 21 QRSD: 82 T: 191 QT: 292 QTc: 381 Interpretive Statements Sinus tachycardia Multiple premature complexes, vent & supraven Aberrant conduction of SV complex(es) Low voltage, precordial leads Nonspecific repol abnormality, diffuse leads Minimal ST elevation, inferior leads Electronically Signed On 02-08-2025 17:55:[address] Jama Montano Please click the below link to view image of tracing.
[2025-02-07 23:06] LABS: MEAN PLATELET VOLUME 9.0 FL (7.4-10.4); RED CELL DISTRIBUTION WIDTH 13.8 % (11.5-14.5)
[2025-02-07 23:13] LABS: CREATININE 1.53 MG/DL (0.60-1.10); TOTAL CARBON DIOXIDE 20.8 MMOL/L (24-32); eCRCL 36 ML/MIN; eGFR 44 ML/MIN
--- NOTE | 2025-02-07 23:18 | RADIOLOGY REPORT ---
CHEST RADIOGRAPH REASON FOR EXAM: shortness of breath COMPARISON: DI CHEST,SINGLE VIEW on DOS: 04/18/23, CHEST,SINGLE VIEW on DOS: 01/01/23, CHEST,SINGLE EW on DOS: 06/03/21, CHEST,SINGLE VIEW on DOS: 08/18/20, CHEST,SINGLE VIEW on DOS: 03/12/20 TECHNIQUE: One view of the chest is provided FINDINGS: The cardiomediastinal silhouette is stably enlarged. There are surgical changes in the med iastinum. There are very low inspiratory volumes causing crowding and exaggeration of the pulmonary markings. There is no focal airspace disease. There is no significant pleural effusion. There is no pneumothorax. IMPRESSION: No radiographic evidence of acute cardiopulmonary process.
[2025-02-08] MEDS: azithromycin/NS 500mg/250ml 250 ML IV SCH (00:05)
[2025-02-08] MEDS: ipratropium/albuterol 3ml nebule NEB STA (00:06)
[2025-02-08 00:09] VITALS: PULSE 84; RESP 20; O2SAT 95
[2025-02-08 00:13] VITALS: PULSE 83; RESP 20; O2SAT 93
[2025-02-08 00:16] LABS: PRO BRAIN NATRIURETIC PEPTIDE 133 PG/ML (0-450)
--- NOTE | 2025-02-08 01:45 | Physician Documentation ---
History of Present Illness ~ Chief Complaint: Shortness of Breath Stated Complaint: SOB Time Seen by MD: 22:40 Primary Medical Doctor: bianca silverman Mode of Arrival: Ambulatory, Dropped Off HPI 79 year old male reports continued shortness of breath. He has a history of COPD and CHF, and uses oxygen by nasal cannula 3L at home. Denies fevers, chest pain, N/V/D. Medication Reconciliation Allergies: Coded Allergies: No Known Allergies (Unverified , 02/07/25) Scheduled Alprazolam (Alprazolam), 1 TAB PO QDAY PRN, (Reported) Bisacodyl (Dulcolax), 2 TAB PO UD Buprenorphine HCl/Naloxone HCl (Buprenorphn-Naloxn 2-0.5 mg Tb), 1 TAB SL DAILY, (Reported) Bupropion Hcl SR* (Wellbutrin SR*), 300 MG PO QAM, (Reported) Dicyclomine Hcl* (Bentyl*), 1 CAP PO TID Duloxetine Hcl* (Cymbalta*), 2 CAP PO DAILY, (Reported) Levothyroxine Sodium* (Levoxyl*), 112 MCG PO DAILY, (Reported) Melatonin (Melatonin), PO HS, (Reported) Metoclopramide HCl (Reglan), 1 TAB PO Q8H Metoprolol Succinate (Metoprolol Succinate), 1 TAB PO DAILY, (Reported) Na Phos,M-B/Na Phos,Di-Ba (Fleet Enema Extra), 197 ML [place] TID Nitroglycerin (Nitrostat), 1 TAB SL UD, (Reported) Pantoprazole Sodium (PROTONIX tablet), 1 TABLET PO DAILY, (Reported) Pantoprazole Sodium (PROTONIX tablet), 1 TAB PO DAILY Trazodone HCl (Trazodone HCl), 1 TAB PO HS, (Reported) Scheduled PRN Ondansetron Hcl (Zofran), 1 TAB PO Q6H PRN for nausea/vomiting, (Reported) Miscellaneous Medications [Lasix], (Reported) Past Medical History Past Medical History: Cataracts, Coronary Artery Disease, High Cholesterol, Hypertension, Myocardial Infarction, Sleep Apnea, Constipation, BPH, Kidney Stones, UTI, Hypothyroidism, Chronic Pain, Chronic Back Pain, Depression Past Surgical History: coronary bypass surgery, orthopedic surgeries, other Other Past Surgical History: cataract surgery Alcohol Use: Occasionally Drug Use: none Lives with: Spouse Lives In: Home Occupation: retired Review of Systems All Other Systems at this time: Reviewed and Negative Physical Exam Vital Signs: RN Vital Signs have been reviewed: Yes, Temperature: 97.8, Source: Oral, Heart Rate: 84, Respiratory Rate: 19, BP: 154/112, Pulse Oximetry: 96, Weight: 91.750 Oxygen Flow Rate: 3 Physical Exam HEENT: PERRL, moist oral mucosa, EOMI Pulmonary: No respiratory distress; speaking full sentences, +expiratory wheezing and prolonged expiratory phase, +diffuse rhonchi Cardiac: RRR, no murmur, rub or gallop MSK: no deformity Skin: w/d/i, no rash Neuro: alert, nonfocal Psych: normal affect Progress Results/Orders Results/Orders Orders - ALIE SHELBY MD Culture Blood (02/07/25 21:54) Urinalysis, Cult If Indicated (02/07/25 21:54) Chest,Single View (02/07/25 22:46) Monitor (02/07/25 21:54) Oxygen (02/07/25 21:54) Saline Lock (02/07/25 21:54) Azithromycin/Ns 500mg/250ml (Zithromax/N (02/08/25 00:00) Completed Orders - ALIE SHELBY MD Cbc/Diff (02/07/25 21:54) Chest,Single View (02/07/25 22:46) Procalcitonin (02/07/25 21:54) BMP (02/07/25 21:54) Lacticsepsis (02/07/25 21:54) Hs Troponin I W Calculations (02/07/25 21:54) Hs Troponin I W Calculations (02/07/25 23:54) Electrocardiogram (02/07/25 ) Ipratropium/Albuterol Nebule (Ipratrop/A (02/07/25 22:59) PBNP (02/07/25 22:52) Lactic,2hr (02/08/25 00:21) Medications Received in ER Medications (Trade) Dose Ordered Sig/Mir Route PRN Reason Start Time Stop Time Status Last Admin Dose Admin (ipratrop/ albuterol 0.5-3(2.5) MG/3ml nebule) 3 ml ONCE STAT NEB 02/07/25 22:59 02/07/25 23:00 DC 02/08/25 00:06 3 ML Azithromycin 250 ml @ 250 mls/hr Q24H@0000 IV 02/08/25 00:00 02/08/25 00:05 250 MLS/HR Vital Signs 02/07/25 02/08/25 02/08/25 02/08/25 21:52 00:09 00:13 00:14 Temp 96.5 Pulse 108 84 83 Resp 25 20 20 22 B/P (MAP) 133/73 Pulse Ox 96 95 93 O2 Delivery Nasal Cannula* Nasal Cannula* O2 Flow Rate 3 3 FiO2 32 32 02/08/25 00:14 Temp 97.8 Pulse 84 Resp 19 B/P (MAP) 154/112 (126) Pulse Ox 96 O2 Flow Rate 3 FiO2 32 Laboratory Tests Test 02/07/25 22:52 02/08/25 01:02 White Blood Count 15.2 H Red Blood Count 4.32 L Hemoglobin 13.8 L Hematocrit 40.6 L Mean Corpuscular Volume 94.0 Mean Corpuscular Hemoglobin 31.9 H Mean Corpuscular Hemoglobin Concent 33.9 Red Cell Distribution Width 13.8 Platelet Count 325 Mean Platelet Volume 9.0 Neutrophils (%) (Auto) 78.4 H Lymphocytes (%) (Auto) 12.5 L Monocytes (%) (Auto) 8.6 Eosinophils (%) (Auto) 0.2 Basophils (%) (Auto) 0.3 Neutrophils # (Auto) 11.9 H Lymphocytes # (Auto) 1.9 Monocytes # (Auto) 1.3 H Eosinophils # (Auto) 0.0 Basophils # (Auto) 0.0 CBC Comment Sodium Level 139 Potassium Level 4.3 Chloride Level 104 Carbon Dioxide Level 20.8 L Anion Gap 14 Blood Urea Nitrogen 34 H Creatinine 1.53 H Estimated GFR/1.73 m2 44 BUN/Creatinine Ratio 22.2 H Glucose Level 267 H Lactic Acid Level 3.8 H 2.5 H Calcium Level 9.2 Troponin I High Sensitivity 8 7 Pro-B-Type Natriuretic Peptide 133 Albumin 3.2 L Procalcitonin < 0.05 Chemistry Comments Troponin I High Sens Percent Delta 12 Troponin I Hi Sens Absolute Change -1 Microbiology Date/Time Source Procedure Growth Status 02/07/25 22:52 Blood Iv Start Blood Culture - Preliminary NEGATIVE (LESS THAN 24 HOURS) Resulted Medical Decision Making Findings 79 year old male with apparent COPD exacerbation on home dose of oxygen and speaking full sentences. Breathing treatment provided. Workup demonstrated no acute findings on CXR, and with a leukocytosis. Patient was already prescribed an antibiotic. I feel that he is safe for discharge home. Return precautions are discussed with he and his and he already finished a course of prednisone which explains his leukocytosis. Differential Dx:Considerations: Include: asthma, CHF, COPD, hypertension, accelerated, pneumonia, pneumonitis, pulmonary embolism, respiratory distress, respiratory failure Departure Disposition: HOME / SELF CARE / HOMELESS Impression: Primary Impression: COPD exacerbation Discharge Instructions: Chronic Obstructive Pulmonary Disease Exacerbation Referrals: NO PRIMARY CARE PROVIDER (PCP) Education Educated: Patient, Family Educated regarding: diagnosis, treatment, prognosis, need for follow up Signature Scribe Signature: . Attestation: . ALIE SHELBY MD Feb 08, 2025 01:45
[2025-02-08 02:31] VITALS: BP 150/100; PULSE 84; RESP 19; TEMP 97.8; O2SAT 96
== END 2025-02-08 02:33 | disposition home or self-care (01) ==
LOC: ER 21:39
DX: J44.1 Chronic obstructive pulmonary disease with (acute) exacerbation (principal); E03.9 Hypothyroidism, unspecified; E78.00 Pure hypercholesterolemia, unspecified; G47.30 Sleep apnea, unspecified; I11.0 Hypertensive heart disease with heart failure; I25.10 Atherosclerotic heart disease of native coronary artery without angina pectoris; I25.2 Old myocardial infarction; I50.9 Heart failure, unspecified; F32.A Depression, unspecified; Z95.1 Presence of aortocoronary bypass graft
CPT/HCPCS: 36415; 71045; 80048; 83605; 83880; 84145; 84484; 85025; 87040; 93005; 94640; 96365; 99285; J0456; 94760

== ENCOUNTER 2025-06-06 03:43 | Emergency (ER) | payer OTHER ==
[~2025-06-06] VITALS: Ht 170.2 cm; Wt 115.0 kg
[2025-06-06 04:28] LABS: MEAN PLATELET VOLUME 8.6 FL (7.4-10.4); RED CELL DISTRIBUTION WIDTH 14.6 % (11.5-14.5)
--- NOTE | 2025-06-06 04:45 | Physician Documentation ---
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 Patient is a poor historian. He states he has been coughing up clear/yellow phlegm. He is SOB with exertion and sleeps upright in a chair at night. Denies fever/chills, chest pain, hemoptysis, changes in bladder or bowel functio n. Medication Reconciliation Allergies: Coded Allergies: No Known Allergies (Unverified , 06/06/25) Scheduled Alprazolam (Alprazolam), 1 TAB PO QDAY PRN, (Reported) Bisacodyl (Dulcolax), 2 TAB PO UD Buprenorphine HCl/Naloxone HCl (Buprenorphn-Naloxn 2-0.5 mg Tb), 1 TAB SL DAILY, (Reported) Bupropion Hcl SR* (Wellbutrin SR*), 300 MG PO QAM, (Reported) Dicyclomine Hcl* (Bentyl*), 1 CAP PO TID Duloxetine Hcl* (Cymbalta*), 2 CAP PO DAILY, (Reported) Levothyroxine Sodium* (Levoxyl*), 112 MCG PO DAILY, (Reported) Melatonin (Melatonin), PO HS, (Reported) Metoclopramide HCl (Reglan), 1 TAB PO Q8H Metoprolol Succinate (Metoprolol Succinate), 1 TAB PO DAILY, (Reported) Na Phos,M-B/Na Phos,Di-Ba (Fleet Enema Extra), 197 ML [place] TID Nitroglycerin (Nitrostat), 1 TAB SL UD, (Reported) Pantoprazole Sodium (PROTONIX tablet), 1 TABLET PO DAILY, (Reported) Pantoprazole Sodium (PROTONIX tablet), 1 TAB PO DAILY Trazodone HCl (Trazodone HCl), 1 TAB PO HS, (Reported) Scheduled PRN Ondansetron Hcl (Zofran), 1 TAB PO Q6H PRN for nausea/vomiting, (Reported) Miscellaneous Medications [Lasix], (Reported) Past Medical History Past Medical History: Cataracts, Coronary Artery Disease, High Cholesterol, Hypertension, Myocardial Infarction, Sleep Apnea, Constipation, BPH, Kidney Stones, UTI, Hypothyroidism, Chronic Pain, Chronic Back Pain, Depression Past Surgical History: coronary bypass surgery, orthopedic surgeries, other Other Past Surgical History: cataract surgery Alcohol Use: Occasionally Drug Use: none Lives with: Spouse Lives In: Home Occupation: retired Review of Systems All Other Systems at this time: Reviewed and Negative Constitutional: Denies: fever Respiratory: Reports: cough, SOB with exertion Physical Exam Vital Signs: Temperature: 97.7, Source: Axillary, Heart Rate: 107, Respiratory Rate: 16, BP: 146/90, Pulse Oximetry: 97, Weight: 115.000 Oxygen Flow Rate: 6.0 Physical Exam General: Awake and Alert, no acute distress. On 3L O2 by NC. HEENT: Conjunctiva pink, Sclera clear, Mucus Membranes dry. Resp: Unlabored. Lungs clear to auscultation bilaterally. Heart: Regular Rate and rhythm, normal S1 and S2 without murmur, rub or gallop. Abdomen: Mildly distended and non tender no organomegaly Extremities: 1+ peripheral edema in the bilateral lower extremities. Skin: Warm and Dry. Progress Results/Orders Results/Orders Orders - ABBY ARVIZU MD Stat Ekg (06/06/25 ) Chest,Single View (06/06/25 04:15) Monitor (06/06/25 04:07) Saline Lock (06/06/25 04:07) Oxygen (06/06/25 04:07) Hs Troponin I W Calculations (06/06/25 06:07) Hs Troponin I W Calculations (06/06/25 07:07) Completed Orders - ABBY ARVIZU MD Chest,Single View (06/06/25 04:15) Cbc/Diff (06/06/25 04:07) Furosemide Inj (Lasix Inj) (06/06/25 04:50) Benzonatate Capsule (Tessalon Perles Cap (06/06/25 05:30) Medications Received in ER Medications (Trade) Dose Ordered Sig/Mir Route PRN Reason Start Time Stop Time Status Last Admin Dose Admin (Lasix inj) 40 mg ONCE ONCE IV 06/06/25 04:50 06/06/25 05:02 DC 06/06/25 05:07 40 MG (Tessalon Perles capsule) 200 mg ONCE ONCE PO 06/06/25 05:30 06/06/25 05:31 DC 06/06/25 05:48 200 MG Vital Signs 06/06/25 06/06/25 06/06/25 06/06/25 03:46 03:54 04:24 04:30 Temp 97.7 Pulse 107 115 Resp 22 16 14 B/P (MAP) 146/90 128/72 (90) Pulse Ox 100 97 97 O2 Delivery Nasal Cannula* O2 Flow Rate 6.0 3 3.0 FiO2 32 Laboratory Tests Test 06/06/25 04:14 06/06/25 04:43 White Blood Count 11.8 H Red Blood Count 4.13 L Hemoglobin 12.8 L Hematocrit 38.8 L Mean Corpuscular Volume 94.0 Mean Corpuscular Hemoglobin 31.0 Mean Corpuscular Hemoglobin Concent 33.0 Red Cell Distribution Width 14.6 H Platelet Count 262 Mean Platelet Volume 8.6 Neutrophils (%) (Auto) 57.8 Lymphocytes (%) (Auto) 23.5 Monocytes (%) (Auto) 14.9 H Eosinophils (%) (Auto) 3.1 Basophils (%) (Auto) 0.7 Neutrophils # (Auto) 6.8 Lymphocytes # (Auto) 2.8 Monocytes # (Auto) 1.8 H Eosinophils # (Auto) 0.4 Basophils # (Auto) 0.1 CBC Comment Chemistry Comments EKG/XRAY/CT/US/VASC/MRI EKG : Additional Comment I personally interpreted the EKG and this shows: Sinus tachycardic, rate 109, QTC 380, no STEMI Chest X-Ray : Additional Comments I personally interpreted the x-ray, and it shows: No focal consolidation, no significant worsening of pulmonary edema, no pneumothorax Medical Decision Making Additional information obtaine: N/A Findings na Heart Score: 3 Differential Dx:Considerations: Include: anxiety, asthma, bronchitis, CHF, COPD, dysrhythmia, myocardial infarction, pulmonary embolism Additional Infomation The patient presents with a cough, and other associated symptoms. Here in the ED, he appears to have normal work of breathing in his on his normal home oxygen level. He does have some scattered wheezes on lung exam. His chest x-ray does not show a pneumonia or obvious volume overload. He was given a breathing treatment and Tessalon Perles. His labs clotted, and so repeat blood was drawn and sent to the lab. The patient stated that he felt better, and prior to the lab results wanted to leave. He was not willing to stay and wait for the lab results including his cardiac testing. He will be discharged with ongoing symptomatic treatment, for presumed bronchitis. He was encouraged to return if he has worsening symptoms. Departure Time of Disposition: 05:46 Disposition: 01 HOME / SELF CARE / HOMELESS Impression: Primary Impression: Cough Condition: Stable Discharge Instructions: Bronchitis Referrals: NO PRIMARY CARE PROVIDER (PCP) Education Educated: Patient Educated regarding: need for follow up Signature Scribe Signature: lesly Attestation: ABBY Holland MD Jun 06, 2025 04:45
[2025-06-06] MEDS: furosemide 10 MG/1 ML 10ml inj IV ONE (05:07)
--- NOTE | 2025-06-06 05:15 | RADIOLOGY REPORT ---
CHEST RADIOGRAPH INDICATION: CP TECHNIQUE: Single frontal view of the chest was obtained COMPARISON: DI CHEST,SINGLE VIEW on DOS: 02/07/25, DI CHEST,SINGLE VIEW on DOS: 04/18/23, CHEST,SINGLE VIEW on DOS: 01/01/23, CHEST,SINGLE VIEW on DOS: 06/03/21, CHEST,SINGLE VIEW on DOS: 08/18/20 FINDINGS: Lines and Tubes: None Lungs: Clear Pleura: No effusion. No pneumothorax. Cardiomediastinal contours: Unremarkable status post median sternotomy. Bones: Unremarkable IMPRESSION: 1. No radiographic evidence of acute cardiopulmonary abnormality.
[2025-06-06 06:09] VITALS: BP 137/67; PULSE 115; RESP 19; TEMP 97.7; O2SAT 97
[2025-06-06 06:13] LABS: CREATININE 1.25 MG/DL (0.60-1.10); PRO BRAIN NATRIURETIC PEPTIDE 89 PG/ML (0-450); TOTAL CARBON DIOXIDE 26.1 MMOL/L (24-32); eCRCL 44 ML/MIN; eGFR 56 ML/MIN
--- NOTE | 2025-06-06 07:25 | ELECTROCARDIOGRAPH REPORT ---
[facility] Test Date: 2025-06-06 Test Time: 03:46:19 Pat Name: RICHIE CRAIG Department: EMERGENCY ROOM [id number] Room: Gender: M [employer]: : 1945 Requested By: ABBY ARVIZU Order Number: [id number] Reading MD: Dr. BRINDA Hannah Measurements Intervals [place] Rate: 109 P: 45 VT: 132 QRS: 32 QRSD: 86 T: 222 QT: 282 QTc: 380 Interpretive Statements Sinus tachycardia Multiple premature complexes, vent & supraven Low voltage, precordial leads Nonspecific repol abnormality, lateral leads Electronically Signed On 06-06-2025 19:40:[address] BRINDA Hannah Please click the below link to view image of tracing.
== END 2025-06-06 06:13 | disposition home or self-care (01) ==
LOC: ER 03:43
DX: R05.9 Cough, unspecified (principal); I11.0 Hypertensive heart disease with heart failure; I50.9 Heart failure, unspecified; J44.9 Chronic obstructive pulmonary disease, unspecified; I25.2 Old myocardial infarction; I25.10 Atherosclerotic heart disease of native coronary artery without angina pectoris; G89.29 Other chronic pain; G47.30 Sleep apnea, unspecified; E78.00 Pure hypercholesterolemia, unspecified; E03.9 Hypothyroidism, unspecified; F32.A Depression, unspecified; Z95.1 Presence of aortocoronary bypass graft; Z87.442 Personal history of urinary calculi; Z87.440 Personal history of urinary (tract) infections; Z79.899 Other long term (current) drug therapy; Z79.84 Long term (current) use of oral hypoglycemic drugs; Z72.89 Other problems related to lifestyle
CPT/HCPCS: 36415; 71045; 80048; 83880; 84484; 85025; 93005; 96374; 99285; J1938

== ENCOUNTER 2025-06-12 12:37 | Emergency (ER) | payer OTHER ==
[~2025-06-12] VITALS: Ht 165.1 cm; Wt 111.7 kg
--- NOTE | 2025-06-12 13:26 | ELECTROCARDIOGRAPH REPORT ---
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
--- NOTE | 2025-06-12 13:53 | RADIOLOGY REPORT ---
EXAM: DI CHEST,SINGLE VIEW TECHNIQUE: Single frontal chest radiograph CLINICAL HISTORY: SEPSIS COMPARISON: DI CHEST,SINGLE VIEW on DOS: 06/06/25, DI CHEST,SINGLE VIEW on DOS: 02/07/25, DI CHEST,SINGLE VIEW on DOS: 04/18/23, CHEST,SINGLE VIEW on DOS: 01/01/23, CHEST,SINGLE VIEW on DOS: 06/03/21 FINDINGS/IMPRESSION: The lungs are clear. Unchanged cardiomediastinal silhouette. Median sternotomy changes are noted. No pleural effusion or pneumothorax. No acute osseous abnormality.
--- NOTE | 2025-06-12 13:56 | Physician Documentation ---
History of Present Illness ~ Chief Complaint: Shortness of Breath Stated Complaint: COLD SYMPTOMS Time Seen by MD: 13:18 Primary Medical Doctor: bianca silverman HPI 79-year-old male four to the emergency department with the CT for evaluation of likely pneumonia. Has had cough with productive sputum for 7-10 days with malaise. Has suspected underlying history of COPD. Shortness a breath is worse with exertion. No unintentional weight loss, night sweats or hemoptysis. No known recent travels hospitalizations or known ill contacts. Medication Reconciliation Allergies: Coded Allergies: No Known Allergies (Unverified , 06/12/25) Scheduled Alprazolam (Alprazolam), 1 TAB PO QDAY PRN, (Reported) Azithromycin (Zithromax), 1 TAB PO DAILY Benzonatate* (Benzonatate*), 1-2 CAP PO Q8H Bisacodyl (Dulcolax), 2 TAB PO UD Buprenorphine HCl/Naloxone HCl (Buprenorphn-Naloxn 2-0.5 mg Tb), 1 TAB SL DAILY, (Reported) Bupropion Hcl SR* (Wellbutrin SR*), 300 MG PO QAM, (Reported) Dicyclomine Hcl* (Bentyl*), 1 CAP PO TID Duloxetine Hcl* (Cymbalta*), 2 CAP PO DAILY, (Reported) Levothyroxine Sodium* (Levoxyl*), 112 MCG PO DAILY, (Reported) Melatonin (Melatonin), PO HS, (Reported) Metoclopramide HCl (Reglan), 1 TAB PO Q8H Metoprolol Succinate (Metoprolol Succinate), 1 TAB PO DAILY, (Reported) Na Phos,M-B/Na Phos,Di-Ba (Fleet Enema Extra), 197 ML [place] TID Nitroglycerin (Nitrostat), 1 TAB SL UD, (Reported) Pantoprazole Sodium (PROTONIX tablet), 1 TABLET PO DAILY, (Reported) Pantoprazole Sodium (PROTONIX tablet), 1 TAB PO DAILY Trazodone HCl (Trazodone HCl), 1 TAB PO HS, (Reported) Scheduled PRN Ondansetron Hcl (Zofran), 1 TAB PO Q6H PRN for nausea/vomiting, (Reported) Miscellaneous Medications [Lasix], (Reported) Past Medical History Past Medical History: Cataracts, Coronary Artery Disease, High Cholesterol, Hypertension, Myocardial Infarction, Sleep Apnea, Constipation, BPH, Kidney Stones, UTI, Hypothyroidism, Chronic Pain, Chronic Back Pain, Depression Past Surgical History: coronary bypass surgery, orthopedic surgeries, other Other Past Surgical History: cataract surgery Alcohol Use: Occasionally Drug Use: none Lives with: Spouse Lives In: Home Occupation: retired Review of Systems All Other Systems at this time: Reviewed and Negative ROS See HPI Respiratory: Reports: see HPI Physical Exam Vital Signs: RN Vital Signs have been reviewed: Yes, Temperature: 99.0, Source: Oral, Heart Rate: 67, Respiratory Rate: 16, BP: 140/56, Pulse Oximetry: 97, Weight: 111.700 Oxygen Flow Rate: 0 General Appearance: alert, WD/WN, mild distress Neck: normal inspection EENT: normal ENT inspection Respiratory: respiratory distress, rhonchi Chest: no accessory muscle use Cardiovascular: normal peripheral pulses Gastrointestinal: normal palpation Extremities: normal inspection Skin: normal color Neurologic: oriented x4 Psychiatric: appropriate Progress Results/Orders Results/Orders Vital Signs 06/12/25 06/12/25 06/12/25 06/12/25 13:05 13:45 13:50 15:02 Temp 99.0 Pulse 71 67 70 Resp 12 16 16 16 B/P (MAP) 140/77 140/56 (84) 159/84 (109) Pulse Ox 96 97 97 O2 Flow Rate 0 0 0 06/12/25 06/12/25 16:09 16:47 Temp 98.4 Pulse 70 74 Resp 18 13 B/P (MAP) 157/87 (110) Pulse Ox 96 O2 Flow Rate 0 Laboratory Tests Test 06/12/25 13:33 06/12/25 13:35 06/12/25 13:40 06/12/25 13:54 Troponin I High Sensitivity 11 White Blood Count 9.8 Red Blood Count 4.23 L Hemoglobin 13.1 L Hematocrit 40.2 L Mean Corpuscular Volume 95.2 Mean Corpuscular Hemoglobin 30.9 Mean Corpuscular Hemoglobin Concent 32.4 L Red Cell Distribution Width 14.6 H Platelet Count 333 Mean Platelet Volume 8.2 Neutrophils (%) (Auto) 64.2 Lymphocytes (%) (Auto) 22.1 Monocytes (%) (Auto) 9.1 Eosinophils (%) (Auto) 3.8 Basophils (%) (Auto) 0.8 Neutrophils # (Auto) 6.3 Lymphocytes # (Auto) 2.2 Monocytes # (Auto) 0.9 Eosinophils # (Auto) 0.4 Basophils # (Auto) 0.1 CBC Comment Sodium Level 137 Potassium Level 4.3 Chloride Level 104 Carbon Dioxide Level 23.6 L Anion Gap 9 Blood Urea Nitrogen 20 H Creatinine 1.30 H Estimated GFR/1.73 m2 53 BUN/Creatinine Ratio 15.4 Glucose Level 136 H Lactic Acid Level 1.6 Calcium Level 9.2 Magnesium Level 2.2 Total Bilirubin 0.2 Aspartate Amino Transf (AST/SGOT) 34 Alanine Aminotransferase (ALT/SGPT) 29 Alkaline Phosphatase 63 Pro-B-Type Natriuretic Peptide 598 H Total Protein 7.5 Albumin 3.0 L Globulin 4.5 H Albumin/Globulin Ratio 0.7 L Procalcitonin < 0.05 Chemistry Comments Influenza Type A Antigen Negative Influenza Type B Antigen Negative SARS-CoV-2 Antigen (Rapid) Negative Test 06/12/25 15:28 Urine Specimen Description Non-specified Urine Color Yellow Urine Clarity Clear Urine pH 6.0 Urine Specific [place] 1.025 Urine Protein Trace Urine Glucose (UA) Negative Urine Ketones Trace H Urine Occult Blood Negative Urine Nitrite Negative Urine Bilirubin Negative Urine Urobilinogen 0.2 Urine Leukocyte Esterase Negative Urine RBC None seen Urine WBC 5-10 H Urine WBC Clumps Few Urine Squamous Epithelial Cells Moderate Urine Bacteria Few Urine Mucus Many Urine Culture Indicated Indicated Volume Urine Centrifuged 10 ml Urine Comment Microbiology Date/Time Source Procedure Growth Status 06/12/25 17:21 Urine Nonspecified Urine Culture - Preliminary Culture received. Resulted 06/12/25 13:53 Blood Arm Left Blood Culture - Preliminary NEGATIVE (LESS THAN 24 HOURS) Resulted Medical Decision Making Additional information obtaine: family Findings 79-year-old male brought to the emergency department for unresolved respiratory infection has a clear chest x-ray with no evidence of pneumonia. I do believe that he likely has a early pneumonia and we will continue with outpatient azithromycin. Shared decision-making not to the hospital. All sepsis orders reviewed. Patient received IV ceftriaxone and p.o. azithromycin upon arrival. Not requiring other respiratory therapy. Speaks in full sentences in vital signs are all reassuring for safe discharge. He understands to follow up with [facility] on Sunday and if symptoms worsen he understands to return to the emergency department in the interim. Heart Score: 4 Differential Dx:Considerations: Include: CHF, COPD, dysrhythmia, myocardial infarction, pneumonia, pneumonitis, pulmonary embolism, respiratory distress, respiratory failure Departure Disposition: HOME / SELF CARE / HOMELESS Impression: Primary Impression: Acute upper respiratory infection Condition: Improved Discharge Instructions: Upper Respiratory Infection, Adult Additional Instructions: All your Labs and X ray are reassuring yet I think you have a developing Pneumonia. Please begin Antibiotic as directed and follow up with the CT Doctor on Sunday and return to Emergency in the interim as needed. SURINDER MCKEON Referrals: NO PRIMARY CARE PROVIDER (PCP) Prescriptions Benzonatate* (Benzonatate*) 100 Mg Capsule 1-2 CAP PO Q8H for cough, #30 CAP Prov: TERRELL GELLER 06/13/25 Azithromycin (Zithromax) 250 Mg Tablet 1 TAB PO DAILY, #6 TAB azithromycin z pack as directed in packaging Prov: TERRELL GELLER 06/13/25 Education Educated: Patient, Family Educated regarding: diagnosis, treatment, prognosis, need for follow up Signature Scribe Signature: . Attestation: I ONLY RE SENT PRESCRIPTIONS TO PATIENT'S PHARMACY HE WAS UNABLE TO GET THE PRESCRIPTIONS OF THE CT SO I SENT THEM TO [facility] IN [place] I HAD NO INVOLVEMENT IN THIS PATIENT'S CARE OTHER THAN TO SEND TO PRESCRIPTIONS TO A DIFFERENT PHARMACY The note accurately reflects work and decisions made by me.Terrell CHILDRESS 06/13/25 10:20 . ABBY HURTADO Jun 12, 2025 13:56 TERRELL GELLER Jun 13, 2025 10:21
[2025-06-12 13:58] LABS: MEAN PLATELET VOLUME 8.2 FL (7.4-10.4); RED CELL DISTRIBUTION WIDTH 14.6 % (11.5-14.5)
[2025-06-12] MEDS: CefTRIAXone/D5W-Rocephin 1gm 50 ML IV ONE (14:00)
[2025-06-12 14:14] LABS: INFLUENZA TYPE A ANTIGEN RAPID NEGATIVE (Negative); INFLUENZA TYPE B ANTIGEN RAPID NEGATIVE (Negative)
[2025-06-12 14:24] LABS: CREATININE 1.30 MG/DL (0.60-1.10); TOTAL CARBON DIOXIDE 23.6 MMOL/L (24-32); eCRCL 39 ML/MIN; eGFR 53 ML/MIN
[2025-06-12 15:12] LABS: PRO BRAIN NATRIURETIC PEPTIDE 598 PG/ML (0-450)
[2025-06-12 16:09] VITALS: BP 157/87; O2SAT 96
[2025-06-12] MEDS ORDERED: AZIT-164 PO (16:35)
[2025-06-12] MEDS ORDERED: BENZ-38 PO (16:35)
[2025-06-12 16:47] VITALS: PULSE 74; RESP 13; TEMP 98.4
[2025-06-12 17:11] LABS: LEUKOCYTE ESTERASE ,URINE NEGATIVE (Neg); NITRITES, URINE NEGATIVE (Neg); OCCULT BLOOD,URINE NEGATIVE (Neg)
[2025-06-12 17:13] LABS: UA COLLECTION TYPE NON-SPECIFIED
[2025-06-12 17:20] LABS: MUCUS STRANDS MANY /LPF (Neg); SQUAMOUS EPITHELIAL CELL,UR MODERATE /LPF (FEW)
[2025-06-12 17:21] LABS: WBC CLUMPS,URINE FEW /HPF (NEGATIVE)
[2025-06-13] MEDS ORDERED: AZIT-164 PO (10:20)
[2025-06-13] MEDS ORDERED: BENZ-38 PO (10:20)
== END 2025-06-12 16:50 | disposition home or self-care (01) ==
LOC: ER 12:38
DX: J06.9 Acute upper respiratory infection, unspecified (principal); E03.9 Hypothyroidism, unspecified; E78.00 Pure hypercholesterolemia, unspecified; G47.30 Sleep apnea, unspecified; G89.29 Other chronic pain; I10 Essential (primary) hypertension; I25.10 Atherosclerotic heart disease of native coronary artery without angina pectoris; F32.A Depression, unspecified; I25.2 Old myocardial infarction; Z87.440 Personal history of urinary (tract) infections; Z87.442 Personal history of urinary calculi; Z95.1 Presence of aortocoronary bypass graft; Z79.899 Other long term (current) drug therapy; Z72.89 Other problems related to lifestyle; Z20.822 Contact with and (suspected) exposure to COVID-19
CPT/HCPCS: 36415; 71045; 80053; 81001; 83605; 83735; 83880; 84145; 84484; 85025; 87040; 87088; 87804; 87811; 93005; 96365; 99285; J0696

== ENCOUNTER 2025-06-17 11:59 | Inpatient (IN) | payer OTHER ==
[~2025-06-17] VITALS: Ht 170.2 cm; Wt 112.7 kg
[~2025-06-17 11:59] MED LIST changes: +AZIT-164 PO; +BENZ-38 PO
[2025-06-17 12:23] LABS: MEAN PLATELET VOLUME 8.2 FL (7.4-10.4); RED CELL DISTRIBUTION WIDTH 14.4 % (11.5-14.5)
--- NOTE | 2025-06-17 12:24 | ELECTROCARDIOGRAPH REPORT ---
[facility] Test Date: 2025-06-17 Test Time: 12:10:36 Pat Name: RICHIE CRAIG Department: EMERGENCY ROOM [id number] 3 Gender: M [employer]: : 1945 Requested By: ERNST OLIVIA Order Number: [id number] Reading MD: Dr. Jama Montano Measurements Intervals [place] Rate: 113 P: 23 AK: 130 QRS: 24 QRSD: 63 T: 162 QT: 409 QTc: 561 Interpretive Statements Sinus tachycardia Low voltage, precordial leads Borderline repolarization abnormality Prolonged QT interval Electronically Signed On 06-17-2025 20:02:[address] Jama Montano Please click the below link to view image of tracing.
--- NOTE | 2025-06-17 12:27 | RADIOLOGY REPORT ---
CLINICAL HISTORY: CP TECHNIQUE: Single view of the chest was obtained. COMPARISON: DI CHEST,SINGLE VIEW on DOS: 06/12/25, DI CHEST,SINGLE VIEW on DOS: 06/06/25, DI CHEST,SINGLE VIEW on DOS: 02/07/25, DI CHEST,SINGLE VIEW on DOS: 04/18/23, CHEST,SINGLE VIEW on DOS: 01/01/23 FINDINGS: The heart size and pulmonary vasculature are normal. There is a left basilar opacity. There are midline sternotomy wires. IMPRESSION: Left basilar opacity, favor atelectasis/ small pleural effusion.
[2025-06-17 12:46] LABS: CREATININE 1.40 MG/DL (0.60-1.10); PRO BRAIN NATRIURETIC PEPTIDE 34 PG/ML (0-450); TOTAL CARBON DIOXIDE 23.4 MMOL/L (24-32); eCRCL 39 ML/MIN; eGFR 49 ML/MIN
[2025-06-17] MEDS: CefTRIAXone 2gm/D5W 50ml BAG 50 ML IV SCH ×2 (13:40→17:42)
--- NOTE | 2025-06-17 13:40 | Physician Documentation ---
History of Present Illness ~ Chief Complaint: Shortness of Breath Stated Complaint: PNEUMONIA Time Seen by MD: 12:35 Primary Medical Doctor: bianca silverman THIS 79-YEAR-OLD MAN RETURNS TO THE ED WITH ONGOING COUGH SYMPTOMS AFTER HE HAS RECENTLY SEEN HERE IN THE ED FROM THE [place]. STATES THAT HE HAS HAD A COUGH FOR A TOTAL OF 14 DAYS AND HAS A AN UNDERLYING HISTORY OF COPD. SHORTNESS OF BREATH IS WORSE WITH A AN EXERTION. DENIES ANY FEVERS NIGHT SWEATS OR HIM NOT THIS IS NO RECENT TRAVELS OR HOSPITALIZATIONS STATES THAT HE DOES FEEL WEAK AND SHORT OF BREATH WHEN AMBULATING Day of Onset: Jun 17, 2025 Medication Reconciliation Allergies: Coded Allergies: No Known Allergies (Unverified , 06/17/25) Scheduled Benzonatate* (Benzonatate*), 1-2 CAP PO Q8H Bisacodyl (Dulcolax), 2 TAB PO UD Buprenorphine HCl/Naloxone HCl (Buprenorphn-Naloxn 2-0.5 mg Tb), 1 TAB SL DAILY, (Reported) Bupropion Hcl SR* (Wellbutrin SR*), 300 MG PO QAM, (Reported) Duloxetine Hcl* (Cymbalta*), 2 CAP PO DAILY, (Reported) Levothyroxine Sodium* (Levoxyl*), 112 MCG PO DAILY, (Reported) Melatonin (Melatonin), PO HS, (Reported) Metoprolol Succinate (Metoprolol Succinate), 1 TAB PO DAILY, (Reported) Na Phos,M-B/Na Phos,Di-Ba (Fleet Enema Extra), 197 ML [place] TID Pantoprazole Sodium (PROTONIX tablet), 1 TABLET PO DAILY, (Reported) Discontinued Medications Alprazolam (Alprazolam), 1 TAB PO QDAY PRN, (Reported) Discontinued Reason: patient no longer taking Azithromycin (Zithromax), 1 TAB PO DAILY Discontinued Reason: patient no longer taking Dicyclomine Hcl* (Bentyl*), 1 CAP PO TID Discontinued Reason: patient no longer taking Metoclopramide HCl (Reglan), 1 TAB PO Q8H Discontinued Reason: patient no longer taking Nitroglycerin (Nitrostat), 1 TAB SL UD, (Reported) Discontinued Reason: patient no longer taking Ondansetron Hcl (Zofran), 1 TAB PO Q6H PRN for nausea/vomiting, (Reported) Discontinued Reason: patient no longer taking Pantoprazole Sodium (PROTONIX tablet), 1 TAB PO DAILY Discontinued Reason: patient no longer taking Trazodone HCl (Trazodone HCl), 1 TAB PO HS, (Reported) Discontinued Reason: patient no longer taking [Lasix], (Reported) Discontinued Reason: patient no longer taking Past Medical History Past Medical History: Cataracts, Coronary Artery Disease, High Cholesterol, Hypertension, Myocardial Infarction, Sleep Apnea, Constipation, BPH, Kidney Stones, UTI, Hypothyroidism, Chronic Pain, Chronic Back Pain, Depression Past Surgical History: coronary bypass surgery, orthopedic surgeries, other Other Past Surgical History: cataract surgery Alcohol Use: Occasionally Drug Use: none Lives with: Spouse Lives In: Home Occupation: retired Review of Systems All Other Systems at this time: Reviewed and Negative ROS As stated above in the HPI, otherwise all systems are reviewed and negative. Physical Exam Vital Signs: Temperature: 97.2, Source: Temporal, Heart Rate: 103, Respiratory Rate: 24, BP: 118/79, Pulse Oximetry: 96, Weight: 112.700 Oxygen Flow Rate: 0 Physical Exam General: Alert, no apparent distress. Neck: Full range of motion. Respiratory: PATIENT'S LUNGS SOUNDS WITH BASILAR CRACKLES Chest: No accessory muscle use. Cardiovascular: Regular rate and rhythm, no murmurs. Gastrointestinal: Soft, nontender, nondistended. Bowels sounds present. Neurologic: Oriented x4. Psychiatric: Normal mood and affect. Skin: Normal color, warm and dry. No edema, no ecchymosis. Progress Results/Orders Results/Orders Orders - YASSINE MAN TEXTILE CHEMIST Ct Chest (06/17/25 15:09) Page Hospitalist (06/17/25 ) Completed Orders - YASSINE MAN TEXTILE CHEMIST LA (06/17/25 13:30) Procalcitonin (06/17/25 13:30) Ct Chest (06/17/25 15:09) Ceftriaxone 2gm/D5w 50ml Bag (Rocephin 2 (06/17/25 13:40) Azithromycin/Ns 500mg/250ml (Zithromax/N (06/17/25 13:40) Normal Saline 1000ml (0.9% Sodium Chlori (06/17/25 13:40) Iohexol 300mg/Ml 100ml Inj. (Omnipaque-3 (06/17/25 14:56) Lactic,2hr (06/17/25 15:36) Medications Received in ER Medications (Trade) Dose Ordered Sig/Mir Route PRN Reason Start Time Stop Time Status Last Admin Dose Admin Azithromycin 250 ml @ 250 mls/hr ONCE ONCE IV 06/17/25 13:40 06/17/25 14:39 DC 06/17/25 13:59 250 MLS/HR (0.9% sodium chloride (NS) 1000ml IV soln) 1,000 ml ONCE ONCE IVB 06/17/25 13:40 06/17/25 13:43 DC 06/17/25 14:00 1,000 ML (SoluMEDROL 125mg inj) 60 mg BID IV 06/17/25 16:00 06/17/25 16:25 60 MG Vital Signs 06/17/25 06/17/25 06/17/25 06/17/25 12:00 13:06 13:30 14:00 Temp 97.2 97.9 Pulse 125 103 98 96 Resp 22 24 16 20 B/P (MAP) 142/69 118/79 (92) 132/74 (93) 129/79 (96) Pulse Ox 97 96 95 97 O2 Flow Rate 0 06/17/25 06/17/25 06/17/25 06/17/25 14:10 14:13 14:30 15:30 Temp 98.1 Pulse 91 89 Resp 17 20 18 B/P (MAP) 127/74 (91) 139/81 (100) Pulse Ox 97 96 97 O2 Delivery Room Air* O2 Flow Rate 0 FiO2 21 Laboratory Tests Test 06/17/25 12:13 06/17/25 13:57 06/17/25 15:15 06/17/25 15:40 White Blood Count 7.4 Red Blood Count 4.41 L Hemoglobin 13.6 L Hematocrit 41.7 L Mean Corpuscular Volume 94.6 Mean Corpuscular Hemoglobin 30.9 Mean Corpuscular Hemoglobin Concent 32.7 L Red Cell Distribution Width 14.4 Platelet Count 306 Mean Platelet Volume 8.2 Neutrophils (%) (Auto) 67.6 Lymphocytes (%) (Auto) 21.8 Monocytes (%) (Auto) 6.9 Eosinophils (%) (Auto) 3.2 Basophils (%) (Auto) 0.5 Neutrophils # (Auto) 5.0 Lymphocytes # (Auto) 1.6 Monocytes # (Auto) 0.5 Eosinophils # (Auto) 0.2 Basophils # (Auto) 0.0 CBC Comment Sodium Level 136 Potassium Level 4.3 Chloride Level 101 Carbon Dioxide Level 23.4 L Anion Gap 12 Blood Urea Nitrogen 20 H Creatinine 1.40 H Estimated GFR/1.73 m2 49 BUN/Creatinine Ratio 14.3 Glucose Level 294 H Calcium Level 9.4 Troponin I High Sensitivity 10 9 7 Pro-B-Type Natriuretic Peptide 34 Albumin 3.1 L Procalcitonin < 0.05 Thyroid Stimulating Hormone (TSH) 7.62 H Chemistry Comments Lactic Acid Level 2.6 H 1.7 Troponin I High Sens Percent Delta 10 22 Troponin I Hi Sens Absolute Change -1 -2 Medical Decision Making Additional information obtaine: old records Findings PER MY INTERPRETATION OF THE PATIENT'S CHEST X-RAY THERE IS SOME LEFT-SIDED OPACITIES WE WILL WE WILL REQUEST A CT CHEST TO CONFIRM DIAGNOSIS OF PNEUMONIA Patient has a also failed outpatient treatment via running out of his azithromycin.. His CT and x-ray do show some minor opacities. He does have an elevated lactic as well but I suspect some of that has related to dehydration based on his age and potential decompensation or poor outcome I am going to request hospitalist evaluation in hospital admission Heart Score: 5 Differential Dx:Considerations: Include: anxiety, asthma, bronchitis, cardiogenic shock, CHF, COPD, dysrhythmia, hypertension, accelerated, hypertension, essential, hypertension, malignant, hyperventilation, hyponatremia, myocardial infarction, panic attack, pneumonia, pneumonitis, pneumothorax, PSVT, pulmonary embolism, respiratory distress, respiratory failure, sinusitis, upper resp. infection, other Departure Disposition: ADMITTED INPATIENT Impression: Primary Impression: Acute upper respiratory infection Additional Impressions: Viral lower respiratory infection Pneumonia Referrals: NO PRIMARY CARE PROVIDER (PCP) Signature Scribe Signature: g Attestation: Scribed for Yassine Man Vibration Engineer by Yassine Lopes NP . 06/17/25 18:05 YASSINE MAN NP Jun 17, 2025 13:40
[2025-06-17] MEDS: azithromycin/NS 500mg/250ml 250 ML IV ONE (13:59)
[2025-06-17] MEDS: normal saline 1000ML IV soln IVB ONE (14:00)
[2025-06-17] MEDS ORDERED: iohexol 300mg/ml 100ml inj. ONE (14:56)
[2025-06-17] MEDS ORDERED: magnesium sulf-water 4G/100mL 100 ML IV PRN (16:00)
[2025-06-17] MEDS ORDERED: magnesium sulf-water 2g/50mL 50 ML IV PRN (16:00)
[2025-06-17] MEDS ORDERED: ondansetron/PF 4mg/2ml inj IV PRN (16:00)
[2025-06-17] MEDS ORDERED: bisacodyl 10mg suppository rectal RC PRN (16:00)
[2025-06-17] MEDS ORDERED: magnesium Cl slow-release 64mg tablet PO PRN (16:00)
[2025-06-17] MEDS ORDERED: magnesium hydroxide 30ml (MOM) UD suspension PO PRN (16:00)
[2025-06-17] MEDS: albuterol 2.5 MG/3 ML nebule NEB SCH (16:00)
[2025-06-17] MEDS ORDERED: HYDROcodone/acetaminophen 5mg/325mg tablet PO PRN (16:00)
[2025-06-17] MEDS ORDERED: potassium Cl 20 mEq SR tablet PO PRN ×2 (16:00)
[2025-06-17] MEDS ORDERED: potassium Cl 40MEQ/1/2NS 520ml 520 ML IV PRN (16:00)
--- NOTE | 2025-06-17 16:00 | RADIOLOGY REPORT ---
CLINICAL HISTORY: PNEUMONIA TECHNIQUE: Chest CT was performed with 99 ml of omnipaque 300 administered intravenously. This exam was performed according to our departmental dose optimization program. Up-to-date CT equipment and radiation dose reduction techniques are utilized as appropriate. WID: COMPARISON: DI CHEST,SINGLE VIEW on DOS: 06/17/25 FINDINGS: Lower Neck: Unremarkable Axilla, Mediastinum and [place]: No thoracic lymphadenopathy. Heart and Great Vessels: Normal-sized heart. Incidental note is made of lipomatous hypertrophy of the intra-atrial septum. Mild aortic valve calcification. Prior median sternotomy and CABG. There is moderate 3-vessel [place] coronary artery calcifications. The thoracic aorta is patent and normal caliber with mild mixed atherosclerotic plaque. The central pulmonary arteries are normal caliber Airway, Lungs and Pleura: Trachea and central airways are patent. There scattered minimal linear areas of atelectasis or scarring in the lungs. No consolidative pneumonia, pleural effusion, or pneumothorax. There is mild bronchial wall thickening. Mild bronchiectasis most pronounced in the bilateral lower lobes. There is mild volume loss in the bilateral lower lobes Upper Abdomen: Cholelithiasis. There is hepatic steatosis. No acute abnormality. Chest Wall and Osseous Structures: Prior median sternotomy. There is multilevel thoracic spondylosis. There is bony demineralization. No destructive osseous lesion. IMPRESSION: 1. No consolidative pneumonia, pleural effusion, or pneumothorax. 2. Mild bronchial wall thickening which could be acute or chronic bronchitis. 3. Mild bronchiectasis is seen most pronounced in the lower lobes. 4. Scattered linear areas of atelectasis and/or scarring in the lungs. 5. Incidental lipomatous hypertrophy of the intra-atrial septum. 6. Prior CABG and moderate [place] coronary artery calcifications. 7. Cholelithiasis. 8. Mild hepatic steatosis.
[2025-06-17] MEDS ORDERED: CefTRIAXone 2gm/D5W 50ml BAG 50 ML IV SCH (16:13)
--- NOTE | 2025-06-17 16:21 | HISTORY AND PHYSICAL-Residence ---
History & Physical Providers to CC Resident Creating Document: REYNA BHARDWAJ RES ~ History of Present Illness Primary Medical Doctor: bianca silverman Reason for Admit\Complaint: Shortness of breath History of Present Illness This is an 79-year-old male patient with a past medical history of CAD, COPD, hypertension, hyperlipidemia, and hypothyroidism, who presented to the ER with worsening shortness of breath over the past week. He reports dyspnea and a productive cough with white/yellow sputum, which partially resolved after a course of azithromycin but recurred today, associated with weakness and malaise. He denies fever, palpitations, dizziness, or lightheadedness. He intermittently experiences chest pain with exertion, which is absent at this time. Review of systems is negative for any other cardiac, respiratory, gastrointestinal, or urinary symptoms. Allergies: Coded Allergies: No Known Allergies (Unverified , 06/17/25) Home Medications Home Medications Active Benzonatate* (Benzonatate) 100 Mg Capsule 1-2 Cap PO Q8H Fleet Enema Extra (Na Phos,M-B/Na Phos,Di-Ba) 19 Gram-7 Gram/197 Ml Enema 197 Ml IN TID 3 Days Dulcolax (Bisacodyl) 5 Mg Tablet.dr 2 Tab PO UD 1 Days Reported Melatonin 3 Mg Tab.rapdis PO HS Metoprolol Succinate 25 Mg Tab.sr.24h 1 Tab PO DAILY 30 Days Buprenorphn-Naloxn 2-0.5 mg Tb (Buprenorphine HCl/Naloxone HCl) 1 Each Tab.subl 1 Tab SL DAILY 30 Days Cymbalta* (Duloxetine HCl) 30 Mg Capsule.dr 2 Cap PO DAILY 30 Days PROTONIX tablet (Pantoprazole Sodium) 40 Mg Tablet.dr 1 Tablet PO DAILY Levoxyl* (Levothyroxine Sodium) 112 Mcg Tablet 112 Mcg PO DAILY Wellbutrin SR* (Bupropion HCl) 150 Mg Tablet.sa 300 Mg PO QAM LOOK-ALIKE SOUND-ALIKE DRUG buSPIRone & buPROPion Past Medical History Past Medical History CAD s/p CABG COPD Hypertension Hyperlipidemia Hypothyroidism Chronic back pain Depression BPH Past Surgical History Surgical History Comment CABG 14 years ago Multiple back surgeries Past Social History Smoking: Greater than 1 pack/day (Patient quit smoking 40 years ago) Alcohol Use: Occasionally (Patient drinks 3-4 drinks weekly) Drug Use: None Lives with: Spouse Lives In: Home Occupation: retired ROS All Other Systems: Reviewed and Negative Constitutional: Reports: malaise, weakness Eyes: Reports: no symptoms reported ENT: Reports: no symptoms reported Respiratory: Reports: cough, shortness of breath, SOB with exertion Cardiovascular: Reports: chest pain Gastrointestinal: Reports: no symptoms reported Genitourinary: Reports: no symptoms reported Male Genitalia: Reports: no symptoms reported Neurological: Reports: no symptoms reported Musculoskeletal: Reports: no symptoms reported Integumentary: Reports: no symptoms reported Allergic/Immunologic: Reports: no symptoms reported Hematologic/Lymphatic: Reports: no symptoms reported Endocrine: Reports: no symptoms reported Psychiatric: Reports: no symptoms reported Exam Vitals: Vital Signs Date Time Temp Pulse Resp B/P (MAP) Pulse Ox O2 Delivery O2 Flow Rate FiO2 06/17/25 14:13 97 Room Air* 0 21 06/17/25 14:10 17 06/17/25 13:06 103 06/17/25 12:00 97.2 General: Awake , alert, and oriented x4, no acute distress HEENT: Atraumatic, normocephalic, EOMI, anicteric sclera ; pink conjunctiva Neck: Trachea midline. Supple, full range of motion, no JVD Cardiac: Tachycardic. Regular rhythm, regular rate with no murmurs all over the precordium. Respiratory: Diminished air movement bilaterally, no tachypnea, sparse expiratory wheezing , left base rales, Chest wall is symmetric and without deformity. Gastrointestinal: Abdomen symmetric, non-distended, soft, non-tender, normal bowel sounds x4 quadrant, normoactive, no hepatosplenomegaly Musculoskeletal: Trace pedal edema Skin: Warm and dry Diagnostic Data Last Recorded Lab Results: 06/17/25 1213 06/17/25 1213 Advance Care Planning Advanced Care plannin - 30 Minutes (The advanced care directives were discussed, and the patient has requested a DNR status.) Additional Plan Assessment 79-year-old male patient with a past medical history of CAD, COPD, hypertension, hyperlipidemia, admitted for COPD exacerbation. 1. COPD exacerbation - failed ambulatory treatment Assessment - reports dyspnea and productive cough - patient received azithromycin without improvement - CXR: Left basilar opacity, favor atelectasis/ small pleural effusion. - Chest CT: No consolidative pneumonia, pleural effusion, or pneumothorax. Mild bronchial wall thickening which could be acute or chronic bronchitis. Mild bronchiectasis is seen most pronounced in the lower lobes. - WBC 11.8, procalcitonin < 0.05, Lactic acid 2.6, BNP 34, negative troponin Plan - started on ceftriaxone and azithromycin - albuterol every 4 hours scheduled - Solu-Medrol 60 mg b.i.d. - incentive spirometry 2. CAD s/p CABG Hypertension Hyperlipidemia - continue home medication - monitor blood pressure - outpatient follow-up 3. Other comorbidities Hypothyroidism Chronic back pain Depression BPH - ordered TSH - pain management - continue home medication Code Status: DNR DVT prophylaxis: Heparin Analgesia/sedation: Morphine/[place]/tube: PIV GI prophylaxis: None Nutrition: Heart healthy diet Prognosis: Guarded Disposition: Admit to medical floor. Resident MD attestation The above note has been reviewed and supervised by a senior resident PGY2/PGY3 Patient was seen, examined and discussed with the attending physician Dr Cox Date of Service: Jun 17, 2025 Billing Provider: ROBINA COX MD Common Visit Codes: 60591-[id number] INP/OBS CARE (HIGH) Secondary Visit Codes: 24454-[id number] CARE PLAN 30 MINUTES REYNA BHARDWAJ RES Jun 17, 2025 16:21 ROBINA COX MD Jun 18, 2025 17:45
[2025-06-17] MEDS: heparin, porcine 5000 units/ml vial SQ SCH (20:33)
[2025-06-17] MEDS: K and/or MAG REPLACEMENT MC SCH (20:34)
[2025-06-17 22:59] VITALS: BP 148/77; PULSE 106; RESP 15; TEMP 97.3; O2SAT 97
[2025-06-17 23:41] VITALS: PULSE 111; RESP 18; O2SAT 94
[2025-06-18] VITALS (8 sets, daily range): BP systolic 140–151; BP diastolic 74–91; PULSE 105–115; RESP 15–22; TEMP 97.1–98; O2SAT 93–97
[2025-06-18 05:57] LABS: MEAN PLATELET VOLUME 8.5 FL (7.4-10.4); RED CELL DISTRIBUTION WIDTH 14.3 % (11.5-14.5)
[2025-06-18 06:07] LABS: CREATININE 1.32 MG/DL (0.60-1.10); TOTAL CARBON DIOXIDE 25.6 MMOL/L (24-32); eCRCL 42 ML/MIN; eGFR 52 ML/MIN
[2025-06-18] MEDS: metoprolol succinate 25mg (24-HOUR) SR. Tablet PO SCH (07:30)
[2025-06-18] MEDS: buPROPion SR 150mg tablet PO SCH (07:30)
[2025-06-18] MEDS: levoTHYROXINE 112mcg tablet PO SCH (07:30)
[2025-06-18] MEDS: duloxetine 30mg CAPSULE.DR PO SCH (07:31)
[2025-06-18] MEDS ORDERED: CefTRIAXone 2gm/D5W 50ml BAG 50 ML IV SCH (08:00)
--- NOTE | 2025-06-18 10:51 | CARDIOLOGY REPORT ---
APPROVED REPORT EXAM: Comprehensive 2D, Doppler, and color-flow Echocardiogram. Patient Location: ED3 Blood Pressure: 118/79 mmHg Heart Rate: 94 bpm Rhythm: NSR Indications SOB COPD CAD Hx [place] CABG x 4 in 2009 [employer] is Janie Jacobo MD Previous echo 06/07/21 [facility] 60% EF ; m MR 2D Dimensions LA Diam 4.6 cm IVSd 1.3 (0.7-1.1cm) LVDd 4.6 cm PWd 1.3 (0.7-1.1cm) IVSs 1.8 (0.8-1.2cm) LVDs 3.2 (2.5-4.0cm) Aortic Root(2D) 3.3 cm PWs 1.6 (0.8-1.2cm) LVOT Diameter 2.33 (1.8-2.4cm) LVEF(%) 56.6 (>50%) Ao Asc Diam. 3.48 cm FS (%) 29.5 % SV 53.8 ml CO 4.9 L/min M-Mode Dimensions MV EPSS 0.7 (<0.5cm) Aortic Valve AoV Peak Daniel. 160.0 cm/s AoV VTI 29.4 cm AO Peak GR. 10.2 mmHg AO Mean GR. 6 mmHg LVOT VTI 20.60 cm LVOT Peak Daniel. 126.8 cm/s SHAHRIAR(VTI)/BSA 2.98 cm2/m2 SHAHRIAR (VTI) 2.98 cm2 AV DI 0.70 % Mitral Valve MV E Velocity 83.3 cm/s MV Peak Gr. 4 mmHg MV DECEL TIME 180 ms MV A Velocity 95.4 cm/s MV PHT 40 ms E/A Ratio 0.9 MVA (PHT) 5.50 cm2 MV VMax 97.6 cm/s TDI Medial E' P. V 8.29 cm/s E/Medial E' 10.0 Pulmonary Vein S1 Velocity 59.3 cm/s D2 Velocity 36.8 cm/s PVa Velocity 26.6 cm/s PVa Duration 92 msec LEFT VENTRICLE Normal LV size and function. Mild concentric hypertrophy. LVEF is 60%. RIGHT VENTRICLE RV appears normal in size and contractility. ATRIA Left atrium is moderately dilated. AORTIC VALVE Trileaflet AV appears sclerotic without stenosis. Trace insufficiency by color and spectral flow Doppler. MITRAL VALVE Mild MV annular calcification without stenosis. Trace regurgitation by color and spectral flow Doppler. TRICUSPID VALVE TV appears structurally normal with trace regurgitation by color and spectral flow Doppler. PULMONIC VALVE Normal PV without stenosis, physiologic insufficiency by color and spectral flow Doppler. GREAT VESSELS The aortic root is normal in size. The ascending aorta is normal in size. IVC is not well visualized. PERICARDIUM There is no pericardial effusion, epicardial pad present. Other Information Study Quality: Fair Conclusion Normal LV size and function. Mild concentric hypertrophy. LVEF is 60%. RV appears normal in size and contractility. Left atrium is moderately dilated. Trileaflet AV appears sclerotic without stenosis. Trace insufficiency by color and spectral flow Doppler. Mild MV annular calcification without stenosis. Trace regurgitation by color and spectral flow Doppler. TV appears structurally normal with trace regurgitation by color and spectral flow Doppler. There is no pericardial effusion, epicardial pad present.
[2025-06-18] MEDS ORDERED: LEVO-65 PO (11:35)
[2025-06-18] MEDS ORDERED: METO-384 PO (11:35)
[2025-06-18] MEDS ORDERED: [UNRECOGNIZED DRUG - CODE] NEB (11:35)
[2025-06-18] MEDS ORDERED: LEVO125T8 PO (11:35)
[2025-06-18] MEDS ORDERED: PRED20TA PO (11:35)
[2025-06-18] MEDS ORDERED: UMEC1DIS INH (11:35)
--- NOTE | 2025-06-18 14:03 | DISCHARGE SUMMARY-Residence ---
Discharge Summary Providers to CC Resident Creating Document: REYNA BHARDWAJ RES ~ Discharge Summary Admission Diagnosis: Acute on chronic COPD exacerbation, possible left lung pneumonia Hospital Course DATE OF ADMISSION: 06/17/25 DATE OF DISCHARGE: 06/18/25 Laboratory Tests Test 06/17/25 12:13 06/17/25 13:57 06/17/25 15:15 06/17/25 15:40 White Blood Count 7.4 X10'3 Red Blood Count 4.41 X10'6 Hemoglobin 13.6 g/dl Hematocrit 41.7 % Mean Corpuscular Volume 94.6 FL Mean Corpuscular Hemoglobin 30.9 PG Mean Corpuscular Hemoglobin Concent 32.7 g/dL Red Cell Distribution Width 14.4 % Platelet Count 306 X10'3 Mean Platelet Volume 8.2 FL Neutrophils (%) (Auto) 67.6 % Lymphocytes (%) (Auto) 21.8 % Monocytes (%) (Auto) 6.9 % Eosinophils (%) (Auto) 3.2 % Basophils (%) (Auto) 0.5 % Neutrophils # (Auto) 5.0 X10'3 Lymphocytes # (Auto) 1.6 X10'3 Monocytes # (Auto) 0.5 X10'3 Eosinophils # (Auto) 0.2 X10'3 Basophils # (Auto) 0.0 X10'3 CBC Comment Sodium Level 136 MMOL/L Potassium Level 4.3 MMOL/L Chloride Level 101 MMOL/L Carbon Dioxide Level 23.4 MMOL/L Anion Gap 12 Blood Urea Nitrogen 20 MG/DL Creatinine 1.40 MG/DL Estimated GFR/1.73 m2 49 ML/MIN BUN/Creatinine Ratio 14.3 Glucose Level 294 MG/DL Calcium Level 9.4 MG/DL Troponin I High Sensitivity 10 ng/L 9 ng/L 7 ng/L Pro-B-Type Natriuretic Peptide 34 PG/ML Albumin 3.1 G/DL Procalcitonin < 0.05 NG/ML Thyroid Stimulating Hormone (TSH) 7.62 ulU/ml Chemistry Comments Lactic Acid Level 2.6 MMOL/L 1.7 MMOL/L Troponin I High Sens Percent Delta 10 % 22 % Troponin I Hi Sens Absolute Change -1 ng/L -2 ng/L Test 06/17/25 17:20 06/18/25 05:07 Lactic Acid Level 1.8 MMOL/L White Blood Count 10.8 X10'3 Red Blood Count 4.22 X10'6 Hemoglobin 13.3 g/dl Hematocrit 39.6 % Mean Corpuscular Volume 93.9 FL Mean Corpuscular Hemoglobin 31.5 PG Mean Corpuscular Hemoglobin Concent 33.5 g/dL Red Cell Distribution Width 14.3 % Platelet Count 341 X10'3 Mean Platelet Volume 8.5 FL Neutrophils (%) (Auto) 89.7 % Lymphocytes (%) (Auto) 8.9 % Monocytes (%) (Auto) 1.3 % Eosinophils (%) (Auto) 0 % Basophils (%) (Auto) 0.1 % Neutrophils # (Auto) 9.7 X10'3 Lymphocytes # (Auto) 1.0 X10'3 Monocytes # (Auto) 0.1 X10'3 Eosinophils # (Auto) 0.0 X10'3 Basophils # (Auto) 0.0 X10'3 CBC Comment Sodium Level 135 MMOL/L Potassium Level 4.6 MMOL/L Chloride Level 100 MMOL/L Carbon Dioxide Level 25.6 MMOL/L Anion Gap 9 Blood Urea Nitrogen 22 MG/DL Creatinine 1.32 MG/DL Estimated GFR/1.73 m2 52 ML/MIN BUN/Creatinine Ratio 16.7 Glucose Level 230 MG/DL Calcium Level 9.3 MG/DL Total Bilirubin 0.3 MG/DL Aspartate Amino Transf (AST/SGOT) 24 U/L Alanine Aminotransferase (ALT/SGPT) 25 U/L Alkaline Phosphatase 61 IU/L Total Protein 7.5 G/DL Albumin 3.0 G/DL Globulin 4.5 G/DL Albumin/Globulin Ratio 0.7 Chemistry Comments Discharge Diagnosis\Comment: 1. COPD exacerbation - failed ambulatory treatment 2. CAD s/p CABG Hypertension Hyperlipidemia 3. Other comorbidities Hypothyroidism Chronic back pain Depression BPH Operations\Procedures: None Consultants: None Complications: None Condition on DC: Stable New Medications: Albuterol Sulfate (Albuterol Sulfate) 1.25 Mg/3 Ml Vial.neb 1 VIAL NEB Q4H PRN for Shortness of breath/Wheezing for 10 Days, #150 ML 0 Refills Levofloxacin (Levofloxacin) 500 Mg Tablet 500 MG PO DAILY for 5 Days, #5 TAB Levothyroxine Sodium (Levothyroxine Sodium) 125 Mcg Tablet 125 MCG PO DAILY for 30 Days, #30 TAB Prednisone* (Prednisone*) 20 Mg Tablet 2 TAB PO DAILY for 5 Days, #10 TAB Umeclidinium Brm/Vilanterol Tr (Anoro Ellipta 62.5-25 Mcg INH) 62.5 Mcg-25 Mcg/Actuation Disk.w.dev 1 PUFFS INH DAILY for 30 Days, #1 EA 0 Refills Changed Medications: Metoprolol Succinate (Metoprolol Succinate) 50 Mg Tab.sr.24h 1 TAB PO DAILY for 30 Days, #30 TAB 0 Refills (Changed from: Metoprolol Succinate 25 Mg Tab.sr.24h 1 Tab PO DAILY 30 Days #30 TAB) Continued Medications: Benzonatate* (Benzonatate*) 100 Mg Capsule 1-2 CAP PO Q8H for cough, #30 CAP Bisacodyl (Dulcolax) 5 Mg Tablet.dr 2 TAB PO UD for constipation for 1 Day, #2 TAB 0 Refills Buprenorphine HCl/Naloxone HCl (Buprenorphn-Naloxn 2-0.5 mg Tb) 1 Each Tab.subl 1 TAB SL DAILY for 30 Days, #60 TAB Bupropion Hcl SR* (Wellbutrin SR*) 150 Mg Tablet.sa 300 MG PO QAM LOOK-ALIKE SOUND-ALIKE DRUG buSPIRone & buPROPion Duloxetine Hcl* (Cymbalta*) 30 Mg Capsule.dr 2 CAP PO DAILY for 30 Days, #30 CAP Melatonin (Melatonin) 3 Mg Tab.rapdis PO HS for sleep, TAB 0 Refills Na Phos,M-B/Na Phos,Di-Ba (Fleet Enema Extra) 19 Gram-7 Gram/197 Ml Enema 197 ML [place] TID for costipation for 3 Days, #9 UNITS 0 Refills Pantoprazole Sodium (PROTONIX tablet) 40 Mg Tablet.dr 1 TABLET PO DAILY, #30 TABLET 5 Refills Discontinued Medications: Levothyroxine Sodium* (Levoxyl*) 112 Mcg Tablet 112 MCG PO DAILY Discharge Summary: History of present illness This is an 79-year-old male patient with a past medical history of CAD, COPD, h ypertension, hyperlipidemia, and hypothyroidism, who presented to the ER with worsening shortness of breath over the past week. He reports dyspnea and a productive cough with white/yellow sputum, which partially resolved after a course of azithromycin but recurred today, associated with weakness and malaise. He denies fever, palpitations, dizziness, or lightheadedness. He intermittently experiences chest pain with exertion, which is absent at this time. Review of systems is negative for any other cardiac, respiratory, gastrointestinal, or urinary symptoms. Hospital course 79-year-old male patient admitted after failed ambulatory for COPD exacerbation. Patient was on room air and remained clinically stable during hospitalization. He was treated with IV antibiotics, steroids, inhalers and incentive spirometry. Clinical response was expressive and today he reports almost complete resolution of his dyspnea and cough. PATIENT RECOVERED EARLIER THAN EXPECTED AND REQUESTS TO BE DISCHARGED IN VIEW OF MIKE. He is stable to be discharged with outpatient follow-up. Chest x-ray Left basilar opacity, favor atelectasis/ small pleural effusion. Chest CT 1. No consolidative pneumonia, pleural effusion, or pneumothorax. 2. Mild bronchial wall thickening which could be acute or chronic bronchitis. 3. Mild bronchiectasis is seen most pronounced in the lower lobes. 4. Scattered linear areas of atelectasis and/or scarring in the lungs. 5. Incidental lipomatous hypertrophy of the intra-atrial septum. 6. Prior CABG and moderate [place] coronary artery calcifications. 7. Cholelithiasis. 8. Mild hepatic steatosis. Echocardiogram Normal LV size and function. Mild concentric hypertrophy. LVEF is 60%. RV appears normal in size and contractility. Left atrium is moderately dilated. Trileaflet AV appears sclerotic without stenosis. Trace insufficiency by color and spectral flow Doppler. Mild MV annular calcification without stenosis. Trace regurgitation by color and spectral flow Doppler. TV appears structurally normal with trace regurgitation by color and spectral flow Doppler. There is no pericardial effusion, epicardial pad present. Discharge physical exam Awake , alert, and oriented x4, no acute distress HEENT: Atraumatic, normocephalic, EOMI, anicteric sclera ; pink conjunctiva Neck: Trachea midline. Supple, full range of motion, no JVD Cardiac: Tachycardic. Regular rhythm, regular rate with no murmurs all over the precordium. Respiratory: Diminished air movement bilaterally, no tachypnea, sparse exp iratory wheezing , right base crackles, Chest wall is symmetric and without deformity. Gastrointestinal: Abdomen symmetric, non-distended, soft, non-tender, normal bowel sounds x4 quadrant, normoactive, no hepatosplenomegaly Musculoskeletal: Trace pedal edema Skin: Warm and dry Discharge medications See below Discharge instructions Follow-up with your primary care physician in 1-2 weeks Take prednisone and levofloxacin for five days Increase metoprolol to 50 mg daily Increase levothyroxine to 125 mcg daily Take Anoro Ellipta daily and albuterol as needed Come back in case of worsening shortness of breath, productive cough, chest pain or any concerning symptoms *Problems/Diagnosis: (1) COPD exacerbation Status: Acute Total Time Spent on D/C: > 30 Minutes Date of Service: Jun 18, 2025 Billing Provider: ROBINA HEART MD Common Visit Codes: 77209-OOB/OBS DISCH DAY >30min REYNA BHARDWAJ, JESUS Jun 18, 2025 14:03 ROBINA HEART MD Jun 18, 2025 17:46
== END 2025-06-18 13:27 | disposition home or self-care (01) | DRG 190 ==
LOC: ER 12:00 → ED HOLD 16:07 → PCU 3S 23:00
PROVIDERS: ADMIT Internal Medicine; ATTEND Internal Medicine
PROC: BW241ZZ Computerized Tomography (CT Scan) of Chest and Abdomen using Low Osmolar Contrast (ICD-10-PCS; principal; 2025-06-17)
DX: J44.0 Chronic obstructive pulmonary disease with (acute) lower respiratory infection (principal); J18.8 Other pneumonia, unspecified organism; Z66 Do not resuscitate; R65.10 Systemic inflammatory response syndrome (SIRS) of non-infectious origin without acute organ dysfunction; J44.1 Chronic obstructive pulmonary disease with (acute) exacerbation; E03.9 Hypothyroidism, unspecified; I10 Essential (primary) hypertension; F32.A Depression, unspecified; E78.00 Pure hypercholesterolemia, unspecified; G89.29 Other chronic pain; M54.89 Other dorsalgia; N40.0 Benign prostatic hyperplasia without lower urinary tract symptoms; I25.10 Atherosclerotic heart disease of native coronary artery without angina pectoris; Z79.899 Other long term (current) drug therapy; Z95.1 Presence of aortocoronary bypass graft; I25.2 Old myocardial infarction
CPT/HCPCS: 36415; 71045; 71260; 80048; 80053; 83605; 83880; 84145; 84443; 84484; 85025; 87040; 87081; 93005; 93306; 94640; 94760; 96365; 99285; A6590; G0378; J0456; J0696; J1644; J2919; J7030; J7040; Q9967